=== PATIENT | male | born 1960 | race Caucasian/White ===

== ENCOUNTER 2020-12-28 15:56 | Inpatient (IN) ==
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
[2020-12-28 17:17] LABS: BASOPHILS # (AUTO) 0.1 X10^3/uL (0.0-0.1); BASOPHILS % (AUTO) 1.1 % (0.2-1.0); EOSINOPHILS % (AUTO) 0.3 % (0.9-2.9); HEMATOCRIT 27.4 % (42.0-54.0); LYMPHOCYTES # (AUTO) 0.9 X10^3/uL (1.3-2.9); LYMPHOCYTES % (AUTO) 10.3 % (21.0-51.0); MEAN CORPUSCULAR HEMOGLOBIN 28.9 pg (27.0-34.0); MEAN CORPUSCULAR HGB CONC 32.6 g/dL (33.0-35.0); MEAN CORPUSCULAR VOLUME 88.5 fL (80.0-100.0); MEAN PLATELET VOLUME 9.2 fL (7.4-11.0); MONOCYTES # (AUTO) 1.4 x10^3/uL (0.3-0.8); MONOCYTES % (AUTO) 15.2 % (0.0-13.0); NEUTROPHILS # (AUTO) 6.5 x10^3/uL (2.2-4.8); NEUTROPHILS % (AUTO) 73.1 % (42.0-75.0); PLATELET COUNT 321 X10^3/uL (150.0-450.0); RED CELL DISTRIBUTION WIDTH 22.2 % (11.6-16.5); WHITE BLOOD COUNT 8.9 X10^3/uL (3.6-10.0)
[2020-12-28 17:31] LABS: ANISOCYTOSIS 2+; PLATELET MORPHOLOGY COMMENT NORMAL (NORMAL)
[2020-12-28 17:32] LABS: ALANINE AMINOTRANSFERASE 13 Units/L (12-78); ALBUMIN 2.8 g/dL (3.4-5.0); ALKALINE PHOSPHATASE 376 Units/L (46-116); ASPARTATE AMINO TRANSFERASE 41 Units/L (15-37); BLOOD UREA NITROGEN 51 mg/dL (7-18); CHLORIDE 101 mmol/L (98-107); CREATININE 3.39 mg/dL (0.70-1.30); SODIUM 136 mmol/L (136-145); TOTAL PROTEIN 7.5 g/dL (6.4-8.2); eGFR NON BLACK RACES 20 (>60)
[2020-12-28] MEDS ORDERED: NS 1000 ML 1,000 ML IV ONE (17:36)
--- NOTE | 2020-12-28 17:48 | CT ---
EXAM: CT ABDOMEN AND PELVIS WITHOUT INTRAVENOUS CONTRASTHISTORY: Abdominal pain. Nausea. Rectal bleeding.TECHNIQUE: Spiral axial CT images are obtained through the abdomen and pelvis without the administration of intravenous contrast. Additional coronal and sagittal reformatted images are reconstructed.DOSIMETRY: Total DLP 449.9 mGycm; CTDI 9.6 mGyCOMPARISON: None available.FINDINGS:GASTROINTESTINAL TRACT: Collapsed stomach with up to 3.4 cm thickening of the gastric wall; DDx includes sequela of collapsed state, but cannot rule out gastritis or infiltrative neoplastic disease (e.g. lymphoma and scirrhous adenocarcinoma/lienitis plastica). Clinical correlation is advised. There is diffuse circumfrential thickening of the large bowel loops consistent with pancolitis; DDX includes ulcerative colitis and pseudomembranous colitis. Clinical correlation is advised. No evidence for bowel herniation, bowel obstruction, or diverticulitis. A normal-appearing appendix is seen.GENITOURINARY SYSTEM: The kidneys are unremarkable. There is no ureteral calculus or stigmata of obstructive uropathy. The urinary bladder, seminal vesicles, and prostate gland appear grossly unremarkable for a non-dedicated exam.CT ABDOMEN: There is cholelithiasis (with an approximately 3.5 mm calcified dependent intraluminal gallstone) with gallbladder dilatation and questionable gallbladder wall thickening; findings in keeping with sequela of chronic cholecystitis, but cannot rule out acute cholecystitis in the appropriate clinical setting. Consider follow-up evaluation with HIDA scan to rule out cystic duct obstruction and acute cholecystitis as clinically warranted. The liver, spleen, pancreas, adrenal glands and inferior vena cava are within normal limits for a noncontrast CT scan. There is no intra-abdominal or retroperitoneal lymphadenopathy, free fluid, or free air seen. No abdominal herniation is noted.CT PELVIS: L3-S1: Multilevel DDD noted, progressively worse distally. The visualized bony structures are otherwise within normal limits. No pelvic sidewall or inguinal lymphadenopathy is seen. No inguinal herniation is noted. No free fluid or free air is seen.LUNG BASES: The lung bases are clear.IMPRESSION:1. Collapsed stomach with up to 3.4 cm thickening of the gastric wall; DDx includes sequela of collapsed state, but cannot rule out gastritis or infiltrative neoplastic disease (e.g. lymphoma and scirrhous adenocarcinoma/lienitis plastica). Clinical correlation is advised.2. Diffuse circumfrential thickening of the large bowel loops consistent with pancolitis; DDX includes ulcerative colitis and pseudomembranous colitis.3. Cholelithiasis (with an approximately 3.5 mm calcified dependent intraluminal gallstone) with gallbladder dilatation and questionable gallbladder wall thickening; findings in keeping with sequela of chronic cholecystitis, but cannot rule out acute cholecystitis in the appropriate clinical setting. Consider follow-up evaluation with HIDA scan to rule out cystic duct obstruction and acute cholecystitis as clinically warranted.4. No evidence for renal stone disease or obstructive uropathy.5. No free fluid, free air, mass lesions, or lymphadenopathy seen.6. L3-S1: Multilevel DDD noted, progressively worse distally.Electronically signed by: Guillermo Nevarez (December 28, 2020 17:46:19)
[2020-12-28 17:56] LABS: ABG BASE EXCESS -9.6 mmol/L (-2.0-2.0)
[2020-12-28 17:57] LABS: ABG ALLEN TEST POS; ABG HCO3 14.4 mmol/L (22-26)
[2020-12-28] MEDS ORDERED: ZOFRAN INJ 4 MG VIAL IVP ONE (18:03)
[2020-12-28 18:13] LABS: LACTIC ACID 0.5 mmol/L (0.4-2.0)
[2020-12-28] MEDS ORDERED: ZOFRAN INJ 4 MG VIAL ONE (18:21)
[2020-12-28] MEDS ORDERED: NS 1000 ML 1,000 ML ONE ×2 (18:21→20:03)
[2020-12-28] MEDS ORDERED: ZOFRAN INJ 4 MG VIAL IVP PRN (19:05)
[2020-12-28 19:14] LABS: BILIRUBIN,URINE 1+ (NEGATIVE); BLOOD/HEMOGLOBIN,URINE 2+ (NEGATIVE); GLUCOSE, URINE NEGATIVE (NEGATIVE); KETONES,URINE 1+ (NEGATIVE); LEUKOCYTE ESTERASE ,URINE NEGATIVE (NEGATIVE); NITRITES,URINE NEGATIVE (NEGATIVE); PROTEIN,URINE 1+ (NEGATIVE); UROBILINOGEN,URINE 1+ (NORMAL)
[2020-12-28 19:16] LABS: APPEARANCE,URINE CLEAR (CLEAR); COLOR,URINE YELLOW (YELLOW)
[2020-12-28 19:23] LABS: BACTERIA,URINE 1+ /HPF (NEGATIVE); HYALINE CASTS, URINE FEW /LPF (NEGATIVE); SQUAMOUS EPITHELIAL CELL,UR FEW /HPF (NEGATIVE)
[2020-12-28] MEDS ORDERED: ZOSYN VIAL 3.375 GRAMS IV ONE (19:57)
[2020-12-28] MEDS ORDERED: NS 100 ML IV + SPIKE MINIBAG* 100 ML IV ONE (19:57)
[2020-12-28] MEDS: ZOSYN VIAL 3.375 GRAMS 3.375 G in NS 100 ML IV + SPIKE MINIBAG* 100 ML IV SCH (20:06)
[2020-12-28] MEDS: NS 1000 ML 1,000 ML IV SCH (20:07)
--- NOTE | 2020-12-28 20:07 | RAD ---
HISTORYNeck painSTUDYCERVICAL SPINE, COMPLETECOMPARISONNoneFINDINGSLateral view is suboptimal. Cervical spine is only adequately visualized through C4. Visualized cervical spine alignment is preserved. There are at least moderate multilevel degenerative changes with moderate multilevel osseous foraminal narrowing on oblique views. Odontoid view is intact. No evidence of fracture is identified.IMPRESSIONNo acute process. Moderate multilevel cervical spondylosis.Electronically signed by: Raffy Ch (December 28, 2020 20:04:44)
[2020-12-28] MEDS ORDERED: LEVOPHED INJ 8 MG in D5W 250 ML IV 242 ML IV PRN (22:35)
[2020-12-28] MEDS ORDERED: D5W 250 ML IV 250 ML IV ONE (22:40)
[2020-12-28] MEDS ORDERED: LEVOPHED INJ ONE (22:40)
[2020-12-29] MEDS: ZOSYN VIAL 3.375 GRAMS 3.375 G in NS 100 ML IV + SPIKE MINIBAG* 100 ML IV SCH ×3 (05:12→20:13)
[2020-12-29] MEDS: NS 1000 ML 1,000 ML IV SCH ×3 (05:12→21:40)
[2020-12-29 06:21] LABS: BASOPHILS # (AUTO) 0.1 X10^3/uL (0.0-0.1); BASOPHILS % (AUTO) 0.9 % (0.2-1.0); EOSINOPHILS # (AUTO) 0.3 x10^3/uL (0.0-0.2); EOSINOPHILS % (AUTO) 4.4 % (0.9-2.9); HEMATOCRIT 26.5 % (42.0-54.0); HEMOGLOBIN 8.8 g/dL (13.5-18.0); LYMPHOCYTES # (AUTO) 0.8 X10^3/uL (1.3-2.9); LYMPHOCYTES % (AUTO) 10.2 % (21.0-51.0); MEAN CORPUSCULAR HEMOGLOBIN 29.6 pg (27.0-34.0); MEAN CORPUSCULAR HGB CONC 33.4 g/dL (33.0-35.0); MEAN CORPUSCULAR VOLUME 88.6 fL (80.0-100.0); MEAN PLATELET VOLUME 9.4 fL (7.4-11.0); MONOCYTES # (AUTO) 0.8 x10^3/uL (0.3-0.8); MONOCYTES % (AUTO) 10.4 % (0.0-13.0); NEUTROPHILS # (AUTO) 5.6 x10^3/uL (2.2-4.8); NEUTROPHILS % (AUTO) 74.1 % (42.0-75.0); PLATELET COUNT 309 X10^3/uL (150.0-450.0); RED BLOOD COUNT 2.99 X10^6/uL (4.7-6.0); RED CELL DISTRIBUTION WIDTH 22.4 % (11.6-16.5); WHITE BLOOD COUNT 7.5 X10^3/uL (3.6-10.0)
[2020-12-29 06:34] LABS: ALANINE AMINOTRANSFERASE 11 Units/L (12-78); ALBUMIN 2.5 g/dL (3.4-5.0); ALKALINE PHOSPHATASE 352 Units/L (46-116); ASPARTATE AMINO TRANSFERASE 40 Units/L (15-37); BLOOD UREA NITROGEN 47 mg/dL (7-18); CALCIUM 7.9 mg/dL (8.5-10.1); CARBON DIOXIDE 15.5 mmol/L (21-32); CHLORIDE 109 mmol/L (98-107); COR CA(FOR HYPOALB) 9.1 mg/dL (8.5-10.1); CREATININE 2.81 mg/dL (0.70-1.30); SODIUM 144 mmol/L (136-145); TOTAL PROTEIN 6.9 g/dL (6.4-8.2); eGFR NON BLACK RACES 24 (>60)
[2020-12-29 06:56] LABS: ANISOCYTOSIS 2+; PLATELET MORPHOLOGY COMMENT NORMAL (NORMAL)
[2020-12-29] MEDS ORDERED: ZESTRIL TAB 40 MG PO SCH (10:00)
[2020-12-29] MEDS: MORPHINE SULFATE INJ 2 MG INJ IVP PRN ×3 (10:04→22:36)
[2020-12-29 10:38] VITALS: BMI 21.2
[2020-12-29] MEDS ORDERED: CITROMA PO ONE ×2 (12:42→20:00)
[2020-12-29] MEDS ORDERED: DULCOLAX TAB EC 5 MG PO ONE (12:49)
[2020-12-29] MEDS: ULTRAM PO PRN ×2 (13:04→20:58)
[2020-12-29] MEDS ORDERED: NS 1000 ML 1,000 ML IV ONE (15:57)
--- NOTE | 2020-12-29 17:32 | DR.CONSULT ---
CONSULT Consultation for Day of: Date: 12/29/20 Chief Complaint Chief Complaint: Complaints of abdominal pain and multiple episodes of diarrhea over the last several weeks. Allergies Allergies Allergy/AdvReac Type Severity Reaction Status Date / Time No Known Drug Allergies Allergy Unverified 12/28/20 19:08 History of Present Illness History of Present Illness: The 60-year-old male with history of tobacco abuse, coronary artery disease status post stenting of one vessel who has had several month history of abdominal pain and diarrhea. Patient recently admitted to [facility] where he had same complaints and underwent upper endoscopy. There were no reported abnormalities from that evaluation. Pathology is still pending.Patient was in a [facility] hospital room with the same complaints. He said remarkably dehydrated with a creatinine of greater than three with elevated BUN as well. Past Medical History Past Medical History: Anemia (Has received multiple transfusions of the last of months for anemia.), Coronary Artery Disease (Stenting of one vessel) and Hypertension Family History Family Medical History: Diabetes Mellitus Social History Does patient currently use any type of tobacco product: Yes Have you used tobacco products in the last 12 months: Yes Type of Tobacco Use: Cigarettes How many years tobacco product used: 40 Packs per day or dips/chews per day: 1.5 packs per day Does any household member use tobacco: No Alcohol Use: DAILY Drug Use: None Medications Home Medications: No Known Drug Allergies Allergy (Unverified 12/28/20 19:08) CONTINUE taking the following medications aspirin [Aspir-81] 81 mg PO DAILY 12/28/20 [History] lisinopril 40 mg PO DAILY 12/28/20 [History] omeprazole 40 mg PO DAILY 12/28/20 [History] tramadol 50 mg PO QID 12/28/20 [History] Review of Systems Constitutional: See HPI Physical Exam Vital Signs: Temperature 97.8 F Pulse Rate [Left Brachial] 90 Pulse Rate 82 Respiratory Rate 15 Blood Pressure [Left Arm] 86/51 Blood Pressure 126/70 O2 Sat by Pulse Oximetry 100 Oriented: Normal, Time, Person and Place Eyes: Normal Ear: Normal Nose: Normal Throat: Normal Respiratory: Clear Throughout Cardiovascular: Normal : Normal Auscultation: Bowel Sounds: Normal Palpation: Normal (No significant tenderness noted on my exam.) Skin: Normal Musculoskeletal: Normal Mood Description: Calm (Patient is a very poor historian) Affect: Anxious Speech Pattern: Clear Plan Plan: Patient will continue hydration. Carefully undergo bowel prep with clear liquids and magnesium citrate and dulcolax tabs. patient will undergo routine laboratory values in the morning. NPO after midnight.I discussed the risk and benefits of endoscopy to include bleeding and perforation. He agrees to proceed.
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
[2020-12-30] MEDS: MORPHINE SULFATE INJ 2 MG INJ IVP PRN ×4 (04:35→23:54)
[2020-12-30] MEDS: NS 1000 ML 1,000 ML IV SCH ×4 (04:49→20:48)
[2020-12-30 05:47] LABS: BASOPHILS # (AUTO) 0.1 X10^3/uL (0.0-0.1); BASOPHILS % (AUTO) 1.2 % (0.2-1.0); EOSINOPHILS # (AUTO) 0.4 x10^3/uL (0.0-0.2); EOSINOPHILS % (AUTO) 7.5 % (0.9-2.9); HEMATOCRIT 26.3 % (42.0-54.0); HEMOGLOBIN 8.6 g/dL (13.5-18.0); LYMPHOCYTES # (AUTO) 0.6 X10^3/uL (1.3-2.9); LYMPHOCYTES % (AUTO) 11.2 % (21.0-51.0); MEAN CORPUSCULAR HGB CONC 32.5 g/dL (33.0-35.0); MEAN PLATELET VOLUME 9.1 fL (7.4-11.0); MONOCYTES # (AUTO) 0.6 x10^3/uL (0.3-0.8); MONOCYTES % (AUTO) 12.7 % (0.0-13.0); NEUTROPHILS # (AUTO) 3.3 x10^3/uL (2.2-4.8); NEUTROPHILS % (AUTO) 67.4 % (42.0-75.0); PLATELET COUNT 276 X10^3/uL (150.0-450.0); RED BLOOD COUNT 2.95 X10^6/uL (4.7-6.0)
[2020-12-30 05:59] LABS: ALANINE AMINOTRANSFERASE 14 Units/L (12-78); ALBUMIN 2.4 g/dL (3.4-5.0); ALKALINE PHOSPHATASE 386 Units/L (46-116); ASPARTATE AMINO TRANSFERASE 44 Units/L (15-37); BLOOD UREA NITROGEN 28 mg/dL (7-18); CALCIUM 8.4 mg/dL (8.5-10.1); CARBON DIOXIDE 17.3 mmol/L (21-32); CHLORIDE 112 mmol/L (98-107); COR CA(FOR HYPOALB) 9.7 mg/dL (8.5-10.1); CREATININE 1.59 mg/dL (0.70-1.30); SODIUM 144 mmol/L (136-145); TOTAL PROTEIN 6.7 g/dL (6.4-8.2); eGFR NON BLACK RACES 47 (>60)
[2020-12-30] MEDS ORDERED: K-RIDER 10 MEQ/NS 100 ML 10 MEQ/100 ML BAG IV ONE ×2 (06:22→11:07)
[2020-12-30] MEDS: K-RIDER 10 MEQ/NS 100 ML 10 MEQ/100 ML BAG IV PRN ×8 (06:28→23:55)
[2020-12-30] MEDS ORDERED: BACTROBAN TOPICAL OINT ONE (06:44)
[2020-12-30] MEDS ORDERED: POLYMYXIN B SULFATE ONE (06:44)
[2020-12-30] MEDS ORDERED: XYLOCAINE 1 % (PLAIN) ONE (06:44)
[2020-12-30 06:58] LABS: ANISOCYTOSIS 1+; PLATELET MORPHOLOGY COMMENT NORMAL (NORMAL)
[2020-12-30] MEDS ORDERED: DIPRIVAN VIAL 20 ML ONE ×2 (09:54→10:17)
--- NOTE | 2020-12-30 10:34 | OR.IMMED ---
IMMEDIATE POST-OP NOTE Immediate Post-Op Note Pre-Op Diagnosis: GI EDING, THICKENED STOMACH on CTOLITIS ON CT Post-Op Diagnosis: Thickened proximal stomach, normal colon Procedure: EGD with multiple biopsies of the proximal stomach thickening, Colon appears normal to cecum Description of Procedure: as above Surgeon/Solar System Installer: Levon Findings: as above Specimens Removed: Multiple biopsies of thickened antrum Estimated Blood Loss: 0 Drains: NONE Complications: none Progress Notes: return to ICU Condition: Stable Final Diagnosis: Await pathology
--- NOTE | 2020-12-30 10:37 | PCM.PROG ---
Progress Note - Progress Note for Day of Date of Exam: 12/30/20 - Subjective Subjective: IS BEING TREATED FOR GASTRIC WALL THICKENING, PANCOLITIS, DEHYDRATION, ANEMIA, AND RENAL FAILURE. TODAY, HE IS ALERT AND ORIENTED, LYING IN BED ON MORNING ROUNDS. HE CONTINUES WITH COMPLAINTS OF WEAKNESS AND DARK STOOLS TODAY. ON EXAMINATION, HEART IS REGULAR IN RATE AND RHYTHM. BILATERAL LUNGS ARE NOTED WITH DIMINISHED LUNG SOUNDS THROUGHOUT. ABDOMEN IS ROUND, SOFT, AND NOTED TO HAVE DIFFUSE TENDERNESS. HIS VITALS THIS MORNING ARE: 97.8-23-61-100-145/82. LABS WERE OBTAINED. ABNORMAL LAB VALUES INCLUDE THE FOLLOWING: RBC 2.95, HGB 8.6, HCT 26.3, POTASSIUM 2.8, CHLORIDE 112, CARBON DIOXIDE 17.3, BUN 28, CREATININE 1.59, CALCIUM 8.4, AST 44, ALK PHOS 386, ALBUMIN 2.4. CRP YESTERDAY WAS 102.10, ESR 91. , GENERAL SURGEON CONSULTED WITH PATIENT AND PLANS FOR EGD AND COLONOSCOPY TODAY. WE ARE IN AGREEMENT WITH PLANS. HE IS CURRENTLY RECEIVING NORMAL SALINE AT 125 ML/HR, LEVOPHED DRIP, ZOSYN 3.375G IV BID, MORPHINE 2MG IV Q6H PRN, ZOFRAN 4MG IV Q8H PRN, AND TRAMADOL 50MG PO QID PRN. WE WILL DISCONTINUE THE LEVOPHED DRIP DUE TO STABLE BLOOD PRESSURE. WE WILL ALSO START MAGNESIUM PER PROTOCOL. OTHERWISE, WE PLAN TO FOLLOW UP WITH AM LABS AND CONTINUE TO MONITOR. - Past Medical Family Social History Past Med/Fam/Surg Hx: No changes since H&P Allergies: Allergies No Known Drug Allergies Allergy (Unverified 12/28/20 19:08) - Review of Systems ROS: No change since H&P - Vital Signs and I&O's Vital Signs: Temperature 97.8 F Pulse Rate [Left Brachial] 90 Pulse Rate 75 Respiratory Rate 12 Blood Pressure [Left Arm] 86/51 Blood Pressure 149/83 O2 Sat by Pulse Oximetry 99 Intake and Output: Intake & Output 12/27/20 12/28/20 12/29/20 12/30/20 11:59 11:59 11:59 11:59 Intake Total 662 / 662 5155 / 5155 Output Total 400 / 400 1200 / 1200 Balance 262 / 262 3955 / 3955 - Physical Exam Oriented: Normal, Time, Person, Place Eyes: Normal Ear: Normal Nose: Normal Throat: Normal Respiratory: Diminished Cardiovascular: Normal : Normal Auscultation: Bowel Sounds: Normal Palpation: Normal Tenderness: Diffuse, Mild Skin: Normal Musculoskeletal: Instability Psychiatric: Normal Mood Description: Calm Affect: Normal Speech Pattern: Clear, Appropriate - Laboratory and Diagnostics Result Diagrams: 12/30/20 05:18 12/30/20 05:18 Labs: Laboratory WBC 5.0 X10^3/uL (3.6-10.0) 12/30/20 05:18 RBC 2.95 X10^6/uL (4.7-6.0) L 12/30/20 05:18 Hgb 8.6 g/dL (13.5-18.0) L 12/30/20 05:18 Hct 26.3 % (42.0-54.0) L 12/30/20 05:18 MCV 89.0 fL (80.0-100.0) 12/30/20 05:18 MCH 29.0 pg (27.0-34.0) 12/30/20 05:18 MCHC 32.5 g/dL (33.0-35.0) L 12/30/20 05:18 RDW 22.0 % (11.6-16.5) H 12/30/20 05:18 Plt Count 276 X10^3/uL (150.0-450.0) 12/30/20 05:18 Plt Count Comment Adequate (ADEQUATE) 12/30/20 05:18 MPV 9.1 fL (7.4-11.0) 12/30/20 05:18 Neut % (Auto) 67.4 % (42.0-75.0) 12/30/20 05:18 Lymph % (Auto) 11.2 % (21.0-51.0) L 12/30/20 05:18 [place] % (Auto) 12.7 % (0.0-13.0) 12/30/20 05:18 Eos % (Auto) 7.5 % (0.9-2.9) H 12/30/20 05:18 Baso % (Auto) 1.2 % (0.2-1.0) H 12/30/20 05:18 Neut # (Auto) 3.3 x10^3/uL (2.2-4.8) 12/30/20 05:18 Lymph # (Auto) 0.6 X10^3/uL (1.3-2.9) L 12/30/20 05:18 [place] # (Auto) 0.6 x10^3/uL (0.3-0.8) 12/30/20 05:18 Eos # (Auto) 0.4 x10^3/uL (0.0-0.2) H 12/30/20 05:18 Baso # (Auto) 0.1 X10^3/uL (0.0-0.1) 12/30/20 05:18 Absolute Nucleated RBC 0.1 /100WBC 12/30/20 05:18 Plt Morphology Comment Normal (NORMAL) 12/30/20 05:18 RBC Morphology Abnormal (NORMAL) 12/30/20 05:18 Anisocytosis 1+ A 12/30/20 05:18 ESR 91 MM/HOUR (0-15) H 12/29/20 05:10 Sample Site Rrad 12/28/20 17:50 ABG pH 7.350 (7.35-7.45) 12/28/20 17:50 ABG pCO2 26.0 mmHg (35.0-45.0) L 12/28/20 17:50 ABG pO2 116.0 mmHg (80.0-100.0) H 12/28/20 17:50 ABG HCO3 14.4 mmol/L (22-26) L* 12/28/20 17:50 ABG O2 Saturation 98.0 % (90-100) 12/28/20 17:50 ABG Base Excess -9.6 mmol/L (-2.0-2.0) L 12/28/20 17:50 Yusef Test Pos 12/28/20 17:50 A-a Gradient 1.0 mmHg 12/28/20 17:50 FiO2 21.0 12/28/20 17:50 Blood Gas Comments Pt olga well elj cdn 12/28/20 17:50 Sodium 144 mmol/L (136-145) 12/30/20 05:18 Corrected Sodium TNP 12/30/20 05:18 Potassium 2.8 mmol/L (3.5-5.1) L* 12/30/20 05:18 Chloride 112 mmol/L (98-107) H 12/30/20 05:18 Carbon Dioxide 17.3 mmol/L (21-32) L 12/30/20 05:18 BUN 28 mg/dL (7-18) H 12/30/20 05:18 Creatinine 1.59 mg/dL (0.70-1.30) H 12/30/20 05:18 Est GFR (MDRD) Af Amer 57 (>60) L 12/30/20 05:18 Est GFR (MDRD) Non-Af 47 (>60) L 12/30/20 05:18 Glucose 90 mg/dL (65-99) 12/30/20 05:18 Lactic Acid 0.5 mmol/L (0.4-2.0) 12/28/20 17:04 Calcium 8.4 mg/dL (8.5-10.1) L 12/30/20 05:18 Corrected Calcium 9.7 mg/dL (8.5-10.1) 12/30/20 05:18 Magnesium 1.5 mg/dL (1.7-2.9) L 12/30/20 05:18 Iron 16 ug/dL (50-175) L 12/29/20 05:10 Transferrin 231 mg/dL (202-364) 12/29/20 05:10 Ferritin 83 ng/mL (26-388) 12/29/20 05:10 Total Bilirubin 0.40 mg/dL (0.2-1.0) 12/30/20 05:18 AST 44 Units/L (15-37) H 12/30/20 05:18 ALT 14 Units/L (12-78) 12/30/20 05:18 Alkaline Phosphatase 386 Units/L (46-116) H 12/30/20 05:18 Creatine Kinase 228 Units/L (39-308) 12/28/20 17:04 C-Reactive Protein 102.10 mg/L (0-3.0) H 12/29/20 05:10 Total Protein 6.7 g/dL (6.4-8.2) 12/30/20 05:18 Albumin 2.4 g/dL (3.4-5.0) L 12/30/20 05:18 Globulin 4.3 g/dL (2.5-4.5) 12/30/20 05:18 Albumin/Globulin Ratio 0.6 Ratio (1.1-2.1) L 12/30/20 05:18 Vitamin B12 1818 pg/mL (193-986) H 12/29/20 05:10 Folate 5.1 ng/mL (>8.6) L 12/29/20 05:10 Specimen Type Clean catch urine 12/28/20 19:03 Urine Color Yellow (YELLOW) 12/28/20 19:03 Urine Appearance Clear (CLEAR) 12/28/20 19:03 Urine pH 5.0 (5.0 - 8.0) 12/28/20 19:03 Ur Specific [place] 1.015 (1.000-1.030) 12/28/20 19:03 Urine Protein 1+ (NEGATIVE) 12/28/20 19:03 Urine Glucose (UA) Negative (NEGATIVE) 12/28/20 19:03 Urine Ketones 1+ (NEGATIVE) 12/28/20 19:03 Urine Occult Blood 2+ (NEGATIVE) 12/28/20 19:03 Urine Nitrite Negative (NEGATIVE) 12/28/20 19:03 Urine Bilirubin 1+ (NEGATIVE) 12/28/20 19:03 Urine Urobilinogen 1+ (NORMAL) 12/28/20 19:03 Ur Leukocyte Esterase Negative (NEGATIVE) 12/28/20 19:03 Urine RBC 3-5 /HPF (0-3) A 12/28/20 19:03 Urine WBC 0-2 /HPF (0-5) 12/28/20 19:03 Ur Squamous Epith Cells Few /HPF (NEGATIVE) 12/28/20 19:03 Urine Bacteria 1+ /HPF (NEGATIVE) 12/28/20 19:03 Hyaline Casts Few /LPF (NEGATIVE) 12/28/20 19:03 Ur Culture Indicated? No/not indicated 12/28/20 19:03 SARS CoV-2 RNA Rapid [place]IS[place] Negative (NEGATIVE) 12/28/20 19:14 - Plan (1) Gastric wall thickening Status: Acute Plan: NORMAL SALINE AT 125 ML/HR, ZOSYN 3.375G IV BID, MAGNESIUM PER PROTOCOL, MORPHINE 2MG IV Q6H PRN, ZOFRAN 4MG IV Q8H PRN, AND TRAMADOL 50MG PO QID PRN. WE WILL CONSULT WITH GENERAL SURGERY. (2) Pancolitis Status: Acute (3) Metabolic acidosis Status: Acute (4) Acute dehydration Status: Acute (5) Anemia Status: Acute Qualifiers: Anemia type: unspecified type Qualified Code(s): D64.9 - Anemia, unspecified (6) CRF (chronic renal failure) Status: Acute Qualifiers: Chronic kidney disease stage: stage 5 Qualified Code(s): N18.5 - Chronic kidney disease, stage 5
[2020-12-30] MEDS: ZOSYN VIAL 3.375 GRAMS 3.375 G in NS 100 ML IV + SPIKE MINIBAG* 100 ML IV SCH ×2 (10:45→20:00)
[2020-12-30] MEDS: MAGNESIUM SULFATE 1 GRAM/100 mL PREMIX 1 GM/100 ML BAG IV PRN ×2 (15:00→16:57)
[2020-12-31] MEDS: K-RIDER 10 MEQ/NS 100 ML 10 MEQ/100 ML BAG IV PRN ×4 (00:55→03:58)
[2020-12-31] MEDS: MORPHINE SULFATE INJ 2 MG INJ IVP PRN (06:10)
[2020-12-31] MEDS: NS 1000 ML 1,000 ML IV SCH ×3 (06:11→19:45)
[2020-12-31 07:27] LABS: BASOPHILS % (AUTO) 0.8 % (0.2-1.0); EOSINOPHILS # (AUTO) 0.3 x10^3/uL (0.0-0.2); EOSINOPHILS % (AUTO) 4.5 % (0.9-2.9); HEMATOCRIT 25.7 % (42.0-54.0); HEMOGLOBIN 8.3 g/dL (13.5-18.0); LYMPHOCYTES # (AUTO) 0.8 X10^3/uL (1.3-2.9); LYMPHOCYTES % (AUTO) 14.5 % (21.0-51.0); MEAN CORPUSCULAR HEMOGLOBIN 29.4 pg (27.0-34.0); MEAN CORPUSCULAR HGB CONC 32.3 g/dL (33.0-35.0); MEAN CORPUSCULAR VOLUME 91.2 fL (80.0-100.0); MEAN PLATELET VOLUME 8.3 fL (7.4-11.0); MONOCYTES # (AUTO) 0.6 x10^3/uL (0.3-0.8); MONOCYTES % (AUTO) 11.1 % (0.0-13.0); NEUTROPHILS # (AUTO) 3.8 x10^3/uL (2.2-4.8); NEUTROPHILS % (AUTO) 69.1 % (42.0-75.0); PLATELET COUNT 239 X10^3/uL (150.0-450.0); RED BLOOD COUNT 2.82 X10^6/uL (4.7-6.0); WHITE BLOOD COUNT 5.5 X10^3/uL (3.6-10.0)
[2020-12-31 07:39] LABS: ALANINE AMINOTRANSFERASE 13 Units/L (12-78); ALBUMIN 2.2 g/dL (3.4-5.0); ALKALINE PHOSPHATASE 376 Units/L (46-116); ASPARTATE AMINO TRANSFERASE 42 Units/L (15-37); BLOOD UREA NITROGEN 18 mg/dL (7-18); CHLORIDE 112 mmol/L (98-107); COR CA(FOR HYPOALB) 9.4 mg/dL (8.5-10.1); CREATININE 1.15 mg/dL (0.70-1.30); MAGNESIUM 1.5 mg/dL (1.7-2.9); SODIUM 140 mmol/L (136-145); TOTAL PROTEIN 6.4 g/dL (6.4-8.2); eGFR NON BLACK RACES > 60 (>60)
[2020-12-31 07:42] LABS: ANISOCYTOSIS 1+; PLATELET MORPHOLOGY COMMENT NORMAL (NORMAL)
[2020-12-31] MEDS: ZOSYN VIAL 3.375 GRAMS 3.375 G in NS 100 ML IV + SPIKE MINIBAG* 100 ML IV SCH ×2 (08:01→22:01)
[2020-12-31] MEDS: MAGNESIUM SULFATE 1 GRAM/100 mL PREMIX 1 GM/100 ML BAG IV PRN ×2 (08:13→09:36)
[2020-12-31] MEDS ORDERED: DEMEROL INJ IVP PRN (09:33)
--- NOTE | 2020-12-31 09:33 | DR.OPNOTE ---
OP NOTE Pre-Op Diagnosis: Date ofprocedure 11/30/20,GI bleeding,? stomach mass, ?brandt- colitis , by CT Post-Op Diagnosis: Normal colon, proximal stomach mass effect no active bleeding Procedure: This patient was taken to the operating suite and placed in the left lateral position. Bite block was placed in the mouth. Time out for the procedure obtained. Flexible scope introduced into her mouth and into the esophagus. The esophagus and gastroesophageal Junction were normal. It was difficult to insufflate the proximal stomach secondary to mass effect. Antrum of the stomach was normal as was the duodenum. Retroflection of the scope carried out showing significant mass effect, possible lymphoid tissue of the proximal stomach. Multiple biopsies and pictures were obtained. The scope was then withdrawn. The patient was turned around and the flexible colonoscope introduced into the anus and taken all the way to the cecum without difficulty. 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 The entire colon was normal in regards to the mucosa. No biopsies were obtained. Scope withdrawn and the patient tolerated this well and was returned to the ICU. Anesthesia Comment: MAC Findings: Proximal stomach mass, normal colon Specimen/Pathology: Multiple biopsies of stomach mass effect Total Amount of Fluid Infused:: se anesthesia note Urine output: see note EBL: 0 Complications:: none Needle/Sponge Count:: not required Disposition/Condition: Pt. tolerated procedure without difficulty. Quality management policies explosiveness with
[2020-12-31] MEDS ORDERED: LEVSIN/MAALOX/LIDOC VISC PO PRN (09:34)
--- NOTE | 2020-12-31 09:57 | PCM.PROG ---
Progress Note - Progress Note for Day of Date of Exam: 12/31/20 - Subjective Subjective: IS BEING TREATED FOR GASTRIC WALL THICKENING, PANCOLITIS, DEHYDRATION, ANEMIA, AND RENAL FAILURE. TODAY, HE IS ALERT AND ORIENTED, LYING IN BED ON MORNING ROUNDS. HE CONTINUES WITH COMPLAINTS OF WEAKNESS, SHORTNESS OF BREATH AT TIMES, AND ABDOMINAL TENDERNESS WELL. ON EXAMINATION, HEART IS REGULAR IN RATE AND RHYTHM. BILATERAL LUNGS ARE NOTED WITH DIMINISHED LUNG SOUNDS THROUGHOUT. ABDOMEN IS ROUND, SOFT, AND NOTED TO HAVE DIFFUSE TENDERNESS TO PALPATION. HIS VITALS THIS MORNING ARE: 98.1-74-18-95%-143/84. LABS WERE OBTAINED. ABNORMAL LAB VALUES INCLUDE THE FOLLOWING: RBC 2.82, HGB 8.3, HCT 25.7, CHLORIDE 112, CARBON DIOXIDE 17.0, CALCIUM 8.0, MAGNESIUM 1.5, AST 42, ALK PHOS 376, CRP 34.30, ALBUMIN 2.2. , GENERAL SURGEON, TOOK PATIENT OT THE OR YESTERDAY FOR AN EGD WITH MULTIPLE BIOPSIES OF THE PROXIMAL STOMACH THICKENING. HE IS CURRENTLY RECEIVING NORMAL SALINE AT 125 ML/HR, ZOSYN 3.375G IV BID, MORPHINE 2MG IV Q6H PRN, ZOFRAN 4MG IV Q8H PRN, TRAMADOL 50MG PO QID PRN, AND THE POTASSIUM AND MAGNESIUM PROTOCOLS. TODAY, WE WILL ADD PEPCID 20MG IV BID, PROTONIX 40MG IV BID, GI COCKTAIL 30ML PO TID PRN. WE WILL OBTAIN A CHEST CT WITH CONTRAST AND A HIDA SCAN WITHOUT EJECTION FRACTION IN THE MORNING TO RULE OUT CYSTIC DUCT OBSTRUCTION OR ACUTE CHOLECYSTITIS. OTHERWISE, WE PLAN TO FOLLOW UP WITH AM LABS AND CONTINUE TO MONITOR. TIME SPENT ON CLINICAL ASSESS MENT, REVIEWING LABS AND IMAGING, DECISION MAKING, AND DOCUMENTATION GREATER THAN 45 MINUTES. - Past Medical Family Social History Past Med/Fam/Surg Hx: No changes since H&P Allergies: Allergies No Known Drug Allergies Allergy (Unverified 12/28/20 19:08) - Review of Systems ROS: No change since H&P - Vital Signs and I&O's Vital Signs: Temperature 98.1 F Pulse Rate [Left Brachial] 90 Pulse Rate 67 Respiratory Rate 14 Blood Pressure [Left Arm] 86/51 Blood Pressure 169/83 O2 Sat by Pulse Oximetry 99 Intake and Output: Intake & Output 0512/29/20 12/30/20 12/31/20 11:59 11:59 11:59 11:59 Intake Total 662 / 662 5155 / 5155 2445 / 2445 Output Total 400 / 400 1200 / 1200 220 / 220 Balance 262 / 262 3955 / 3955 2225 / 2225 - Physical Exam Oriented: Normal, Time, Person, Place Eyes: Normal Ear: Normal Nose: Normal Throat: Normal Respiratory: Diminished Cardiovascular: Normal : Normal Auscultation: Bowel Sounds: Normal Palpation: Normal Tenderness: Diffuse, Mild Skin: Normal Musculoskeletal: Instability Psychiatric: Normal Mood Description: Calm Affect: Normal Speech Pattern: Clear, Appropriate - Laboratory and Diagnostics Result Diagrams: 12/31/20 07:17 12/31/20 07:17 Labs: Laboratory WBC 5.5 X10^3/uL (3.6-10.0) 12/31/20 07:17 RBC 2.82 X10^6/uL (4.7-6.0) L 12/31/20 07:17 Hgb 8.3 g/dL (13.5-18.0) L 12/31/20 07:17 Hct 25.7 % (42.0-54.0) L 12/31/20 07:17 MCV 91.2 fL (80.0-100.0) 12/31/20 07:17 MCH 29.4 pg (27.0-34.0) 12/31/20 07:17 MCHC 32.3 g/dL (33.0-35.0) L 12/31/20 07:17 RDW 22.0 % (11.6-16.5) H 12/31/20 07:17 Plt Count 239 X10^3/uL (150.0-450.0) 12/31/20 07:17 Plt Count Comment Adequate (ADEQUATE) 12/31/20 07:17 MPV 8.3 fL (7.4-11.0) 12/31/20 07:17 Neut % (Auto) 69.1 % (42.0-75.0) 12/31/20 07:17 Lymph % (Auto) 14.5 % (21.0-51.0) L 12/31/20 07:17 [place] % (Auto) 11.1 % (0.0-13.0) 12/31/20 07:17 Eos % (Auto) 4.5 % (0.9-2.9) H 12/31/20 07:17 Baso % (Auto) 0.8 % (0.2-1.0) 12/31/20 07:17 Neut # (Auto) 3.8 x10^3/uL (2.2-4.8) 12/31/20 07:17 Lymph # (Auto) 0.8 X10^3/uL (1.3-2.9) L 12/31/20 07:17 [place] # (Auto) 0.6 x10^3/uL (0.3-0.8) 12/31/20 07:17 Eos # (Auto) 0.3 x10^3/uL (0.0-0.2) H 12/31/20 07:17 Baso # (Auto) 0.0 X10^3/uL (0.0-0.1) 12/31/20 07:17 Absolute Nucleated RBC 0.0 /100WBC 12/31/20 07:17 Plt Morphology Comment Normal (NORMAL) 12/31/20 07:17 RBC Morphology Abnormal (NORMAL) 12/31/20 07:17 Anisocytosis 1+ A 12/31/20 07:17 ESR 91 MM/HOUR (0-15) H 12/29/20 05:10 Sample Site Rrad 12/28/20 17:50 ABG pH 7.350 (7.35-7.45) 12/28/20 17:50 ABG pCO2 26.0 mmHg (35.0-45.0) L 12/28/20 17:50 ABG pO2 116.0 mmHg (80.0-100.0) H 12/28/20 17:50 ABG HCO3 14.4 mmol/L (22-26) L* 12/28/20 17:50 ABG O2 Saturation 98.0 % (90-100) 12/28/20 17:50 ABG Base Excess -9.6 mmol/L (-2.0-2.0) L 12/28/20 17:50 Yusef Test Pos 12/28/20 17:50 A-a Gradient 1.0 mmHg 12/28/20 17:50 FiO2 21.0 12/28/20 17:50 Blood Gas Comments Pt olga well elj cdn 12/28/20 17:50 Sodium 140 mmol/L (136-145) 12/31/20 07:17 Corrected Sodium TNP 12/31/20 07:17 Potassium 4.2 mmol/L (3.5-5.1) 12/31/20 07:17 Chloride 112 mmol/L (98-107) H 12/31/20 07:17 Carbon Dioxide 17.0 mmol/L (21-32) L 12/31/20 07:17 BUN 18 mg/dL (7-18) 12/31/20 07:17 Creatinine 1.15 mg/dL (0.70-1.30) 12/31/20 07:17 Est GFR (MDRD) Af Amer > 60 (>60) 12/31/20 07:17 Est GFR (MDRD) Non-Af > 60 (>60) 12/31/20 07:17 Glucose 93 mg/dL (65-99) 12/31/20 07:17 Lactic Acid 0.5 mmol/L (0.4-2.0) 12/28/20 17:04 Calcium 8.0 mg/dL (8.5-10.1) L 12/31/20 07:17 Corrected Calcium 9.4 mg/dL (8.5-10.1) 12/31/20 07:17 Magnesium 1.5 mg/dL (1.7-2.9) L 12/31/20 07:17 Iron 16 ug/dL (50-175) L 12/29/20 05:10 Transferrin 231 mg/dL (202-364) 12/29/20 05:10 Ferritin 83 ng/mL (26-388) 12/29/20 05:10 Total Bilirubin 0.30 mg/dL (0.2-1.0) 12/31/20 07:17 AST 42 Units/L (15-37) H 12/31/20 07:17 ALT 13 Units/L (12-78) 12/31/20 07:17 Alkaline Phosphatase 376 Units/L (46-116) H 12/31/20 07:17 Creatine Kinase 228 Units/L (39-308) 12/28/20 17:04 C-Reactive Protein 34.30 mg/L (0-3.0) H 12/31/20 07:17 Total Protein 6.4 g/dL (6.4-8.2) 12/31/20 07:17 Albumin 2.2 g/dL (3.4-5.0) L 12/31/20 07:17 Globulin 4.2 g/dL (2.5-4.5) 12/31/20 07:17 Albumin/Globulin Ratio 0.5 Ratio (1.1-2.1) L 12/31/20 07:17 Vitamin B12 1818 pg/mL (193-986) H 12/29/20 05:10 Folate 5.1 ng/mL (>8.6) L 12/29/20 05:10 Specimen Type Clean catch urine 12/28/20 19:03 Urine Color Yellow (YELLOW) 12/28/20 19:03 Urine Appearance Clear (CLEAR) 12/28/20 19:03 Urine pH 5.0 (5.0 - 8.0) 12/28/20 19:03 Ur Specific [place] 1.015 (1.000-1.030) 12/28/20 19:03 Urine Protein 1+ (NEGATIVE) 12/28/20 19:03 Urine Glucose (UA) Negative (NEGATIVE) 12/28/20 19:03 Urine Ketones 1+ (NEGATIVE) 12/28/20 19:03 Urine Occult Blood 2+ (NEGATIVE) 12/28/20 19:03 Urine Nitrite Negative (NEGATIVE) 12/28/20 19:03 Urine Bilirubin 1+ (NEGATIVE) 12/28/20 19:03 Urine Urobilinogen 1+ (NORMAL) 12/28/20 19:03 Ur Leukocyte Esterase Negative (NEGATIVE) 12/28/20 19:03 Urine RBC 3-5 /HPF (0-3) A 12/28/20 19:03 Urine WBC 0-2 /HPF (0-5) 12/28/20 19:03 Ur Squamous Epith Cells Few /HPF (NEGATIVE) 12/28/20 19:03 Urine Bacteria 1+ /HPF (NEGATIVE) 12/28/20 19:03 Hyaline Casts Few /LPF (NEGATIVE) 12/28/20 19:03 Ur Culture Indicated? No/not indicated 12/28/20 19:03 SARS CoV-2 RNA Rapid GISSELLE Negative (NEGATIVE) 12/28/20 19:14 Tissue Pathology To follow 12/30/20 10:34 - Plan (1) Gastric wall thickening Status: Acute Plan: NORMAL SALINE AT 125 ML/HR, ZOSYN 3.375G IV BID, MAGNESIUM PER PROTOCOL, DEMEROL 25MG IV Q6H PRN, PEPCID 20MG IV BID, PROTONIX 40MG IV BID, GI COCKTAIL PRN, ZOFRAN 4MG IV Q8H PRN, AND TRAMADOL 50MG PO QID PRN. HIDA IN AM (2) Pancolitis Status: Acute (3) Metabolic acidosis Status: Acute (4) Acute dehydration Status: Acute (5) Anemia Status: Acute Qualifiers: Anemia type: unspecified type Qualified Code(s): D64.9 - Anemia, unspecified (6) CRF (chronic renal failure) Status: Acute Qualifiers: Chronic kidney disease stage: stage 5 Qualified Code(s): N18.5 - Chronic kidney disease, stage 5
[2020-12-31] MEDS: PROTONIX INJ 40 MG VIAL IVP SCH ×2 (10:42→21:11)
[2020-12-31] MEDS: PEPCID 20 MG IV PREMIX* 20 MG/50 ML BAG IV SCH ×2 (10:42→21:11)
[2020-12-31] MEDS: DEMEROL INJ IVP PRN ×3 (12:15→23:11)
--- NOTE | 2020-12-31 14:35 | CT ---
HISTORYSOB, COUGH, EVAL FOR MALIGNANT PROCESS, ABNOMAL EGD hypertension. Coronary artery disease.STUDYCHEST WITH CONCOMPARISONChest x-ray 05/11/2019TECHNIQUEMultiple CT axial images of the chest were obtained without IV contrast. Coronal and sagittal images were reconstructed. Dose reduction techniques included Automated Exposure Control (AEC) and adjustment of mA and kV.FINDINGSThe thyroid has a normal size and configuration. No axillary mass or significant axillary lymphadenopathy is identified.Cardiomegaly is present. Atherosclerotic calcifications are present in the coronary arteries. The pulmonary artery and aorta have a normal caliber. No mediastinal mass or significant lymphadenopathy.The lungs are well inflated with no pneumonia or pleural effusion.Small volume ascites is seen in the upper abdomen. This is new since the prior CT abdomen and pelvis 12/28/2020 the spleen is large measuring 14 cm. Calcified gallstone is present. Fluid around the gallbladder may be part of the ascites which is present.IMPRESSION1. No evidence for malignancy in the chest2. Cardiomegaly with CAD3. New small volume ascites4. CholelithiasisElectronically signed by: Daryn Motta (December 31, 2020 14:32:54)
--- NOTE | 2020-12-31 20:18 | NOTE.SOAP ---
Soap Note Note for Day of Date of Exam: 12/31/20 Subjective Data Subjective Data: Patient admitted with dehydration and evidence of G.I. bleeding. CT scan showed questionable thickening of the gastric antrum and possible brandt- colitis.Colonoscopy showed a normal colon. Multibyte is obtained of the proximal mass. Pathology pending. Patient dehydration markedly improved. Patient note have gallstones but this point has no significant symptoms. HIDA scan ordered. Objective Data Temperature: 98.8 F Pulse Rate: 78 Respiratory Rate: 20 Blood Pressure: 153/79 O2 Sat by Pulse Oximetry: 100 Objective Data: Benign abdomen. Tolerating clear liquids. Assessment Assessment: Continued liquid diet await final pathology. Continue proton pump inhibitor. HIDA scan ordered by his attending physician. Plan Plan: Await results of the pathology. Patient transferred to the floor.
[2021-01-01] MEDS: NS 1000 ML 1,000 ML IV SCH ×4 (04:25→21:22)
[2021-01-01] MEDS: DEMEROL INJ IVP PRN ×4 (05:00→23:08)
[2021-01-01 05:24] LABS: BASOPHILS # (AUTO) 0.1 X10^3/uL (0.0-0.1); BASOPHILS % (AUTO) 2.8 % (0.2-1.0); EOSINOPHILS # (AUTO) 0.2 x10^3/uL (0.0-0.2); EOSINOPHILS % (AUTO) 4.1 % (0.9-2.9); HEMATOCRIT 23.9 % (42.0-54.0); HEMOGLOBIN 7.8 g/dL (13.5-18.0); LYMPHOCYTES % (AUTO) 19.4 % (21.0-51.0); MEAN CORPUSCULAR HEMOGLOBIN 29.5 pg (27.0-34.0); MEAN CORPUSCULAR HGB CONC 32.6 g/dL (33.0-35.0); MEAN CORPUSCULAR VOLUME 90.3 fL (80.0-100.0); MEAN PLATELET VOLUME 8.9 fL (7.4-11.0); MONOCYTES # (AUTO) 0.5 x10^3/uL (0.3-0.8); MONOCYTES % (AUTO) 9.3 % (0.0-13.0); NEUTROPHILS # (AUTO) 3.3 x10^3/uL (2.2-4.8); NEUTROPHILS % (AUTO) 64.4 % (42.0-75.0); PLATELET COUNT 200 X10^3/uL (150.0-450.0); RED BLOOD COUNT 2.65 X10^6/uL (4.7-6.0); RED CELL DISTRIBUTION WIDTH 22.1 % (11.6-16.5); WHITE BLOOD COUNT 5.1 X10^3/uL (3.6-10.0)
[2021-01-01 05:43] LABS: ALANINE AMINOTRANSFERASE 13 Units/L (12-78); ALBUMIN 2.1 g/dL (3.4-5.0); ALKALINE PHOSPHATASE 371 Units/L (46-116); ASPARTATE AMINO TRANSFERASE 42 Units/L (15-37); BLOOD UREA NITROGEN 14 mg/dL (7-18); CALCIUM 8.3 mg/dL (8.5-10.1); CARBON DIOXIDE 17.3 mmol/L (21-32); CHLORIDE 112 mmol/L (98-107); COR CA(FOR HYPOALB) 9.8 mg/dL (8.5-10.1); CREATININE 1.06 mg/dL (0.70-1.30); MAGNESIUM 1.5 mg/dL (1.7-2.9); SODIUM 142 mmol/L (136-145); eGFR NON BLACK RACES > 60 (>60)
[2021-01-01 06:04] LABS: ANISOCYTOSIS 2+; HYPOCHROMASIA SLIGHT; PLATELET MORPHOLOGY COMMENT NORMAL (NORMAL)
[2021-01-01] MEDS: PEPCID 20 MG IV PREMIX* 20 MG/50 ML BAG IV SCH ×2 (09:05→20:30)
[2021-01-01] MEDS: ZOSYN VIAL 3.375 GRAMS 3.375 G in NS 100 ML IV + SPIKE MINIBAG* 100 ML IV SCH ×2 (09:06→20:30)
[2021-01-01] MEDS: MAGNESIUM SULFATE 1 GRAM/100 mL PREMIX 1 GM/100 ML BAG IV PRN ×2 (09:06→11:17)
[2021-01-01] MEDS: PROTONIX INJ 40 MG VIAL IVP SCH ×2 (09:07→20:30)
[2021-01-01] MEDS ORDERED: TYLENOL 325 MG TAB PO PRN (10:00)
[2021-01-01] MEDS ORDERED: BENADRYL INJ 50 MG VIAL IVP PRN (10:00)
[2021-01-01] MEDS ORDERED: NS 500 ML IV 500 ML IV ONE (10:00)
--- NOTE | 2021-01-01 10:00 | PCM.PROG ---
Progress Note - Progress Note for Day of Date of Exam: 01/01/21 - Subjective Subjective: IS BEING TREATED FOR GASTRIC WALL THICKENING, PANCOLITIS, DEHYDRATION, ANEMIA, AND RENAL FAILURE. HE HAD AN ENDOSCOPY WEDNESDAY WHICH REVEALED THICKENING OF THE PROXIMAL STOMACH. MULTIPLE BIPOSIES WERE TAKEN. TODAY, HE IS ALERT AND ORIENTED, LYING IN BED ON MORNING ROUNDS. HE CONTINUES WITH COMPLAINTS OF WEAKNESS, SHORTNESS OF BREATH AT TIMES, AND ABDOMINAL TENDERNESS WELL. ABDOMEN IS SLIGHTLY DISTENDED. ON EXAMINATION, HEART IS REGULAR IN RATE AND RHYTHM. BILATERAL LUNGS ARE NOTED WITH DIMINISHED LUNG SOUNDS THROUGHOUT. ABDOMEN IS ROUND, SOFT, AND NOTED TO HAVE DIFFUSE TENDERNESS TO PALPATION. NORMAL BOWEL SOUNDS ARE NOTED IN ALL QUADRANTS. HIS VITALS THIS MORNING ARE: 97.4-71-18-100%-160/89. LABS WERE OBTAINED. ABNORMAL LAB VALUES INCLUDE THE FOLLOWING: RBC 2.65, HGB 7.8, HCT 23.9, CHLORIDE 112, CARBON DIOXIDE 17.3, CALCIUM 8.3, MAGNESIUM 1.5, AST 42, ALK PHOS 371, CRP 18.60, TOTAL PROTEIN 6.0, ALBUMIN 2.1. A CHEST CT WITH CONTRAST WAS OBTAIEND YESTERDAY AND REVEALED: 1. No evidence for malignancy in the chest 2. Cardiomegaly with CAD 3. New small volume ascites 4. Cholelithiasis. HE IS CURRENTLY RECEIVING NORMAL SALINE AT 125 ML/HR, ZOSYN 3.375G IV BID, MORPHINE 2MG IV Q6H PRN, ZOFRAN 4MG IV Q8H PRN, TRAMADOL 50MG PO QID PRN, AND THE POTASSIUM AND MAGNESIUM PROTOCOLS. TODAY, WE WILL ADD PEPCID 20MG IV BID, PROTONIX 40MG IV BID, GI COCKTAIL 30ML PO TID PRN. WE WILL OBTAIN A MRCP THIS MORNING TO RULE OUT CYSTIC DUCT OBSTRUCTION. WE WILL ALSO ADMINISTER 2 UNITS OF PRBC. OTHERWISE, WE PLAN TO FOLLOW UP WITH AM LABS AND CONTINUE TO MONITOR. TIME SPENT ON CLINICAL ASSESSMENT, REVIEWING LABS AND IMAGING, DECISION MAKING, AND DOCUMENTATION GREATER THAN 45 MINUTES. - Past Medical Family Social History Past Med/Fam/Surg Hx: No changes since H&P Allergies: Allergies No Known Drug Allergies Allergy (Unverified 12/28/20 19:08) - Review of Systems ROS: No change since H&P - Vital Signs and I&O's Vital Signs: Temperature 97.4 F Pulse Rate [Left Brachial] 90 Pulse Rate 71 Respiratory Rate 18 Blood Pressure [Left Arm] 86/51 Blood Pressure 160/89 O2 Sat by Pulse Oximetry 100 Intake and Output: Intake & Output 12/29/20 12/30/20 12/31/20 01/01/21 11:59 11:59 11:59 11:59 Intake Total 662 / 662 5155 / 5155 2445 / 2445 3880 / 3880 Output Total 400 / 400 1200 / 1200 220 / 220 1950 / 1949 Balance 262 / 262 3955 / 3955 2225 / 2225 193 / 193 - Physical Exam Oriented: Normal, Time, Person, Place Eyes: Normal Ear: Normal Nose: Normal Throat: Normal Respiratory: Diminished Cardiovascular: Normal : Normal Auscultation: Bowel Sounds: Normal Palpation: Normal Tenderness: Diffuse, Mild Skin: Normal Musculoskeletal: Instability Psychiatric: Normal Mood Description: Calm Affect: Normal Speech Pattern: Clear - Laboratory and Diagnostics Result Diagrams: 01/01/21 04:23 01/01/21 04:23 Labs: Laboratory WBC 5.1 X10^3/uL (3.6-10.0) 01/01/21 04:23 RBC 2.65 X10^6/uL (4.7-6.0) L 01/01/21 04:23 Hgb 7.8 g/dL (13.5-18.0) L 01/01/21 04:23 Hct 23.9 % (42.0-54.0) L 01/01/21 04:23 MCV 90.3 fL (80.0-100.0) 01/01/21 04:23 MCH 29.5 pg (27.0-34.0) 01/01/21 04:23 MCHC 32.6 g/dL (33.0-35.0) L 01/01/21 04:23 RDW 22.1 % (11.6-16.5) H 01/01/21 04:23 Plt Count 200 X10^3/uL (150.0-450.0) 01/01/21 04:23 Plt Count Comment Adequate (ADEQUATE) 01/01/21 04:23 MPV 8.9 fL (7.4-11.0) 01/01/21 04:23 Neut % (Auto) 64.4 % (42.0-75.0) 01/01/21 04:23 Lymph % (Auto) 19.4 % (21.0-51.0) L 01/01/21 04:23 [place] % (Auto) 9.3 % (0.0-13.0) 01/01/21 04:23 Eos % (Auto) 4.1 % (0.9-2.9) H 01/01/21 04:23 Baso % (Auto) 2.8 % (0.2-1.0) H 01/01/21 04:23 Neut # (Auto) 3.3 x10^3/uL (2.2-4.8) 01/01/21 04:23 Lymph # (Auto) 1.0 X10^3/uL (1.3-2.9) L 01/01/21 04:23 [place] # (Auto) 0.5 x10^3/uL (0.3-0.8) 01/01/21 04:23 Eos # (Auto) 0.2 x10^3/uL (0.0-0.2) 01/01/21 04:23 Baso # (Auto) 0.1 X10^3/uL (0.0-0.1) 01/01/21 04:23 Absolute Nucleated RBC 0.1 /100WBC 01/01/21 04:23 Plt Morphology Comment Normal (NORMAL) 01/01/21 04:23 RBC Morphology Abnormal (NORMAL) 01/01/21 04:23 Hypochromasia Slight A 01/01/21 04:23 Anisocytosis 2+ A 01/01/21 04:23 ESR 91 MM/HOUR (0-15) H 12/29/20 05:10 Sample Site Rrad 12/28/20 17:50 ABG pH 7.350 (7.35-7.45) 12/28/20 17:50 ABG pCO2 26.0 mmHg (35.0-45.0) L 12/28/20 17:50 ABG pO2 116.0 mmHg (80.0-100.0) H 12/28/20 17:50 ABG HCO3 14.4 mmol/L (22-26) L* 12/28/20 17:50 ABG O2 Saturation 98.0 % (90-100) 12/28/20 17:50 ABG Base Excess -9.6 mmol/L (-2.0-2.0) L 12/28/20 17:50 Yusef Test Pos 12/28/20 17:50 A-a Gradient 1.0 mmHg 12/28/20 17:50 FiO2 21.0 12/28/20 17:50 Blood Gas Comments Pt olga well elj cdn 12/28/20 17:50 Sodium 142 mmol/L (136-145) 01/01/21 04:23 Corrected Sodium TNP 01/01/21 04:23 Potassium 3.8 mmol/L (3.5-5.1) 01/01/21 04:23 Chloride 112 mmol/L (98-107) H 01/01/21 04:23 Carbon Dioxide 17.3 mmol/L (21-32) L 01/01/21 04:23 BUN 14 mg/dL (7-18) 01/01/21 04:23 Creatinine 1.06 mg/dL (0.70-1.30) 01/01/21 04:23 Est GFR (MDRD) Af Amer > 60 (>60) 01/01/21 04:23 Est GFR (MDRD) Non-Af > 60 (>60) 01/01/21 04:23 Glucose 83 mg/dL (65-99) 01/01/21 04:23 POC Glucose (mg/dL) 202 mg/dL (65-99) H 12/31/20 16:31 Lactic Acid 0.5 mmol/L (0.4-2.0) 12/28/20 17:04 Calcium 8.3 mg/dL (8.5-10.1) L 01/01/21 04:23 Corrected Calcium 9.8 mg/dL (8.5-10.1) 01/01/21 04:23 Magnesium 1.5 mg/dL (1.7-2.9) L 01/01/21 04:23 Iron 16 ug/dL (50-175) L 12/29/20 05:10 Transferrin 231 mg/dL (202-364) 12/29/20 05:10 Ferritin 83 ng/mL (26-388) 12/29/20 05:10 Total Bilirubin 0.30 mg/dL (0.2-1.0) 01/01/21 04:23 GGT 764 U/L (7-51) H 12/29/20 05:10 AST 42 Units/L (15-37) H 01/01/21 04:23 ALT 13 Units/L (12-78) 01/01/21 04:23 Alkaline Phosphatase 371 Units/L (46-116) H 01/01/21 04:23 Ammonia 45 umol/L (11-32) H 01/01/21 08:57 Creatine Kinase 228 Units/L (39-308) 12/28/20 17:04 C-Reactive Protein 18.60 mg/L (0-3.0) H 01/01/21 04:23 Total Protein 6.0 g/dL (6.4-8.2) L 01/01/21 04:23 Albumin 2.1 g/dL (3.4-5.0) L 01/01/21 04:23 Globulin 3.9 g/dL (2.5-4.5) 01/01/21 04:23 Albumin/Globulin Ratio 0.5 Ratio (1.1-2.1) L 01/01/21 04:23 Carcinoembryonic Ag 3.3 ng/mL (0.0-3.0) H 12/29/20 05:10 Vitamin B12 1818 pg/mL (193-986) H 12/29/20 05:10 Folate 5.1 ng/mL (>8.6) L 12/29/20 05:10 Specimen Type Clean catch urine 12/28/20 19:03 Urine Color Yellow (YELLOW) 12/28/20 19:03 Urine Appearance Clear (CLEAR) 12/28/20 19:03 Urine pH 5.0 (5.0 - 8.0) 12/28/20 19:03 Ur Specific [place] 1.015 (1.000-1.030) 12/28/20 19:03 Urine Protein 1+ (NEGATIVE) 12/28/20 19:03 Urine Glucose (UA) Negative (NEGATIVE) 12/28/20 19:03 Urine Ketones 1+ (NEGATIVE) 12/28/20 19:03 Urine Occult Blood 2+ (NEGATIVE) 12/28/20 19:03 Urine Nitrite Negative (NEGATIVE) 12/28/20 19:03 Urine Bilirubin 1+ (NEGATIVE) 12/28/20 19:03 Urine Urobilinogen 1+ (NORMAL) 12/28/20 19:03 Ur Leukocyte Esterase Negative (NEGATIVE) 12/28/20 19:03 Urine RBC 3-5 /HPF (0-3) A 12/28/20 19:03 Urine WBC 0-2 /HPF (0-5) 12/28/20 19:03 Ur Squamous Epith Cells Few /HPF (NEGATIVE) 12/28/20 19:03 Urine Bacteria 1+ /HPF (NEGATIVE) 12/28/20 19:03 Hyaline Casts Few /LPF (NEGATIVE) 12/28/20 19:03 Ur Culture Indicated? No/not indicated 12/28/20 19:03 SARS CoV-2 RNA Rapid GISSELLE Negative (NEGATIVE) 12/28/20 19:14 Tissue Pathology To follow 12/30/20 10:34 - Plan (1) Gastric wall thickening Status: Acute Plan: NORMAL SALINE AT 125 ML/HR, ZOSYN 3.375G IV BID, MAGNESIUM PER PROTOCOL, DEMEROL 25MG IV Q6H PRN, PEPCID 20MG IV BID, PROTONIX 40MG IV BID, GI COCKTAIL PRN, ZOFRAN 4MG IV Q8H PRN, AND TRAMADOL 50MG PO QID PRN. HIDA IN AM (2) Pancolitis Status: Acute (3) Metabolic acidosis Status: Acute (4) Acute dehydration Status: Acute (5) Anemia Status: Acute Qualifiers: Anemia type: unspecified type Qualified Code(s): D64.9 - Anemia, unspecified Plan: TRANSFUSE 2 UNIT PRBC (6) CRF (chronic renal failure) Status: Acute Qualifiers: Chronic kidney disease stage: stage 5 Qualified Code(s): N18.5 - Chronic kidney disease, stage 5
--- NOTE | 2021-01-01 14:25 | MRI ---
MRCPClinical indication: RULE OUT CYSTIC DUCT OBSTRUCTIONProcedure: Multiplanar multi sequence MRI of the abdomen were obtained without the administration of intravenous contrast according to standard MRCP protocol.Comparisons:Abdomen pelvis CT December 28, 2020Findings:No significant iron or fat deposition in the liver or spleen. Small volume ascites particular in the right abdomen and perihepatic region.Liver and spleen are normal in size and morphology. No definite focal lesions. Gallbladder is not dilated however there is gallbladder wall thickening. No filling defects within the common bile duct. No ductal dilatation Pancreas demonstrates normal T1 signal. Adrenal glands are grossly normal Kidneys demonstrate normal cortical medullary differentiation. No hydronephrosis. No suspicious lymph nodes.Impression:1. Gallbladder wall thickening without visible gallstones. No gallbladder dilatation. Again, if acute cholecystitis is clinically suspected or cannot be differentiated on clinical examination, HIDA scan would be recommended.2. Amount of fluid within the abdomen and perihepatic region has increased significantly when compared to prior. Correlate clinically.MRCP is a focused examination designed specifically to evaluate the bile ducts. Ability to evaluate other organs and detection of parenchymal lesions and masses is limited.Electronically signed by: KAYLA FERREIRA (January 01, 2021 14:23:05)
--- NOTE | 2021-01-01 21:15 | NOTE.SOAP ---
Soap Note Note for Day of Date of Exam: 01/01/21 Subjective Data Subjective Data: Patient doing well. Hgb is 7.8 and to receive 2 more units of blood. Taking clear liquids. I called [facility] [place] about then pathology of the stomach biopsies and they told me it just need ed confirmation but they never called me back. Objective Data Temperature: 97.2 F Pulse Rate: 77 Respiratory Rate: 18 Blood Pressure: 166/86 O2 Sat by Pulse Oximetry: 100 Objective Data: Abdomen soft and benign Assessment Assessment: 2 units PRBCs today . Should have final pathology tomorrow so we can make final plan Plan Plan: as above
[2021-01-01] MEDS ORDERED: NS 250 ML IV 250 ML IV ONE (21:23)
[2021-01-02] MEDS ORDERED: NS 250 ML IV 250 ML IV ONE (02:48)
[2021-01-02] MEDS: NS 1000 ML 1,000 ML IV SCH ×2 (04:10→09:35)
[2021-01-02] MEDS: DEMEROL INJ IVP PRN ×2 (05:14→11:30)
[2021-01-02 07:01] LABS: BASOPHILS # (AUTO) 0.1 X10^3/uL (0.0-0.1); EOSINOPHILS # (AUTO) 0.2 x10^3/uL (0.0-0.2); EOSINOPHILS % (AUTO) 3.9 % (0.9-2.9); HEMATOCRIT 32.4 % (42.0-54.0); HEMOGLOBIN 10.6 g/dL (13.5-18.0); LYMPHOCYTES # (AUTO) 0.8 X10^3/uL (1.3-2.9); LYMPHOCYTES % (AUTO) 14.5 % (21.0-51.0); MEAN CORPUSCULAR HEMOGLOBIN 28.5 pg (27.0-34.0); MEAN CORPUSCULAR HGB CONC 32.6 g/dL (33.0-35.0); MEAN CORPUSCULAR VOLUME 87.3 fL (80.0-100.0); MEAN PLATELET VOLUME 8.6 fL (7.4-11.0); MONOCYTES # (AUTO) 0.6 x10^3/uL (0.3-0.8); MONOCYTES % (AUTO) 10.5 % (0.0-13.0); NEUTROPHILS % (AUTO) 70.1 % (42.0-75.0); PLATELET COUNT 189 X10^3/uL (150.0-450.0); RED BLOOD COUNT 3.71 X10^6/uL (4.7-6.0); RED CELL DISTRIBUTION WIDTH 21.4 % (11.6-16.5); WHITE BLOOD COUNT 5.8 X10^3/uL (3.6-10.0)
[2021-01-02 07:09] LABS: ALANINE AMINOTRANSFERASE 15 Units/L (12-78); ALBUMIN 2.4 g/dL (3.4-5.0); ALKALINE PHOSPHATASE 386 Units/L (46-116); ASPARTATE AMINO TRANSFERASE 45 Units/L (15-37); BLOOD UREA NITROGEN 10 mg/dL (7-18); CALCIUM 8.5 mg/dL (8.5-10.1); CARBON DIOXIDE 20.1 mmol/L (21-32); CHLORIDE 107 mmol/L (98-107); COR CA(FOR HYPOALB) 9.8 mg/dL (8.5-10.1); CREATININE 1.03 mg/dL (0.70-1.30); MAGNESIUM 1.4 mg/dL (1.7-2.9); SODIUM 138 mmol/L (136-145); TOTAL PROTEIN 6.5 g/dL (6.4-8.2); eGFR NON BLACK RACES > 60 (>60)
[2021-01-02 07:19] LABS: AMMONIA 40 umol/L (11-32)
[2021-01-02 07:30] LABS: PLATELET MORPHOLOGY COMMENT NORMAL (NORMAL)
[2021-01-02 07:31] LABS: ANISOCYTOSIS 1+
[2021-01-02] MEDS: PROTONIX INJ 40 MG VIAL IVP SCH (09:14)
[2021-01-02] MEDS: ZOSYN VIAL 3.375 GRAMS 3.375 G in NS 100 ML IV + SPIKE MINIBAG* 100 ML IV SCH (09:15)
[2021-01-02] MEDS: PEPCID 20 MG IV PREMIX* 20 MG/50 ML BAG IV SCH (09:15)
[2021-01-02 12:45] VITALS: BP 173/99
== END 2021-01-02 12:15 | disposition home health service (06) | DRG 386 ==
LOC: ER 16:03 → MED/SURG 19:44 → ICU 19:48 → MED/SURG 12-31 14:14
PROVIDERS: ADMIT Internal Medicine; ATTEND Internal Medicine

== ENCOUNTER 2021-02-23 19:56 | Observation (INO) ==
[2021-02-23] MEDS ORDERED: PROTONIX INJ 40 MG VIAL IVP ONE (20:43)
[2021-02-23] MEDS ORDERED: NS 1000 ML 1,000 ML IV ONE (20:43)
[2021-02-23] MEDS ORDERED: MORPHINE SULFATE INJ 2 MG INJ IVP ONE (21:06)
[2021-02-23] MEDS ORDERED: ZOFRAN INJ 4 MG VIAL IVP ONE (21:06)
--- NOTE | 2021-02-23 21:12 | DR.ABDMALE ---
HPI Time seen Time Seen by Provider: 02/23/21 20:43 PCP Primary Care Physician: JU TAVERAS Complaint Chief Complaint:: PT IN ED VIA WHEELCHAIR WITH C/O ABD PAIN WITH PASSING BLOOD IN STOOL TODAY. COVID-19 Coronavirus risk:travel/contact w/high risk person: No Has patient experienced Coronavirus symptoms: No Reviewed Nurses Notes Review: Yes Mode of arrival Mode of Arrival: Wheelchair Timing Onset of Chief Complaint: 02/23/21 Duration How lon Duration: Days Location Location: Diffuse Severity Severity: Moderate Quality Quality: Aching and Cramping Associated signs and symptoms Associated Signs and Symptoms: Melena PMH PMH Past Medical History: Yes Past Medical History: Anemia, Coronary Artery Disease, Hypertension and PUD Past Surgical History: Yes Surgical History: Angioplasty/Stents Family History History of Family Medical Conditions: Yes Family Medical History: Diabetes Mellitus Social History Does patient currently use any type of tobacco product: Yes Have you used tobacco products in the last 12 months: Yes Type of Tobacco Use: Cigarettes Does any household member use tobacco: No Alcohol Use: Occasionally Do you use any recreational Drugs:: No Lives With: Friend Lives Where: Home Travel Risk Coronavirus risk:travel/contact w/high risk person: No Has patient experienced Coronavirus symptoms: No Infectious screening In the last 2 months have you had wt loss of >10#?: NO Have you had fever, night sweats or hemotysis?: No Have you traveled outside the country in the last 6 months?: No Isolation: Standard ROS Review of Systems Constitutional: No Symptoms Reported Eyes: No Symptoms Reported ENTM: No Symptoms Reported Respiratoy: No Symptoms Reported Cardiovascular: No Symptoms Reported Gastrointestinal/Abdominal: See HPI and Abdominal Pain Genitourinary: No Symptoms Reported Neurological: No Symptoms Reported Musculoskeletal: No Symptoms Reported Integumentary: No Symptoms Reported Hematologic/Lymphatic: No Symptoms Reported Endocrine: No Symptoms Reported Psychiatric: No Symptoms Reported All Other Systems: Reviewed and Negative PE Vital Signs Vital Signs: Temp Pulse Resp BP BP Pulse Ox 02/23/21 22:30 97 H 106/61 100 02/23/21 22:15 87 100 02/23/21 22:07 84 96 02/23/21 22:00 85 20 95/62 100 02/23/21 21:45 95 H 107/59 100 02/23/21 21:39 18 02/23/21 19:57 96.9 F L 107 H 22 113/63 100 01/02/21 12:00 173/99 12/28/20 20:15 86/51 General Limitations: No Limitations General Appearance: Alert and In No Apparent Distress Head Head Exam: Normal Inspection Eyes Eye exam: Normal Appearance ENT ENT Exam: Normal Exam Neck Neck Exam: Normal Inspection Chest Chest Inspection: Normal Inspection Respiratory Respiratory Exam: Normal Lung Sounds Bilat Cardiovascular Cardiovascular Exam: Regular Rate and Normal Rhythm Abdominal Exam Abdominal Exam: Normal Inspection, Soft and Tenderness (mild diffuse) Rectal Rectal Exam: Normal Inspection, Normal Rectal Tone and Black Stool Back Back Exam: Normal Inspection Extremeties Extremities Exam: Normal Inspection Exam: Male: Deferred Neurologic Neurological Exam: Alert and Oriented X3 Psychiatric Psychiatric Exam: Normal Affect and Normal Mood Skin Skin Exam: Warm, Dry, Intact and Normal Color MDM Additional Information Obtained From Additional information provided by: Old Records and Family Differential Diagnosis Differential Diagnosis: AAA, Angina/NH, Aortic dissection, Appendicitis, Bowel Obstruction, Cholangitis, Cholcystitis, Cholelethiasis, Constipation, Diverticular disease, Dysmenorrhea, Ectopic , Esophageal rupture, Esophagitis, Gastritus/PUD, Gastroenteritis, Hernia, Hepatitis, Inflammatory BD, Ischemic Bowel, Ovarian cyst/torsion, Pancreatitis, PID, Porphyria, Trauma, intra-abdominal, Urinary obstruction, Urinary tract infection, Urolithiasis, Testicular torsion and Other (comments) COURSE Treatment Treatment: ? GI bleed, h/o of gastric ulcers, dark stools, vitals OK Reevaluation 1st: Unchanged (hgb 6.6 spoke with Sera, will transfuse and admit, ) 2nd: Unchanged (will be admitted, transfuse on floor, bridging orders written, pt accepted, labs unremarkable except for indications or alcohol abuse and GI bleeding, no reported hematemsis ) Critical Care Notes Total Time (mins): 35 Critical Diagnosis: GI bleed, acute blood loss anemia Critical Interventions: treatment , admission, transfusion ROR Labs Reviewed Laboratory Results Reviewed?: Yes Result Diagrams: 02/23/21 21:18 02/23/21 21:18 Laboratory: WBC 10.3 X10^3/uL (3.6-10.0) H 02/23/21 21:18 RBC 2.05 X10^6/uL (4.7-6.0) L 02/23/21 21:18 Hgb 6.6 g/dL (13.5-18.0) L* 02/23/21 21:18 Hct 18.9 % (42.0-54.0) L* 02/23/21 21:18 MCV 92.3 fL (80.0-100.0) 02/23/21 21:18 MCH 32.1 pg (27.0-34.0) 02/23/21 21:18 MCHC 34.8 g/dL (33.0-35.0) 02/23/21 21:18 RDW 19.0 % (11.6-16.5) H 02/23/21 21:18 Plt Count 277 X10^3/uL (150.0-450.0) 02/23/21 21:18 Plt Count Comment Adequate (ADEQUATE) 02/23/21 21:18 MPV 8.2 fL (7.4-11.0) 02/23/21 21:18 Neut % (Auto) 78.5 % (42.0-75.0) H 02/23/21 21:18 Lymph % (Auto) 12.2 % (21.0-51.0) L 02/23/21 21:18 [place] % (Auto) 7.3 % (0.0-13.0) 02/23/21 21:18 Eos % (Auto) 1.1 % (0.9-2.9) 02/23/21 21:18 Baso % (Auto) 0.9 % (0.2-1.0) 02/23/21 21:18 Neut # (Auto) 8.1 x10^3/uL (2.2-4.8) H 02/23/21 21:18 Lymph # (Auto) 1.3 X10^3/uL (1.3-2.9) 02/23/21 21:18 [place] # (Auto) 0.7 x10^3/uL (0.3-0.8) 02/23/21 21:18 Eos # (Auto) 0.1 x10^3/uL (0.0-0.2) 02/23/21 21:18 Baso # (Auto) 0.1 X10^3/uL (0.0-0.1) 02/23/21 21:18 Absolute Nucleated RBC 0.0 /100WBC 02/23/21 21:18 Total Counted 100 02/23/21 21:18 Neutrophils % (Manual) 77 % (39-76) H 02/23/21 21:18 Band Neutrophils % 2 % (0-10) 02/23/21 21:18 Lymphocytes % (Manual) 13 % (13-43) 02/23/21 21:18 Monocytes % (Manual) 7 % (4-9) 02/23/21 21:18 Eosinophils % (Manual) 1 % (0-6) 02/23/21 21:18 Plt Morphology Comment Normal (NORMAL) 02/23/21 21:18 RBC Morphology Abnormal (NORMAL) 02/23/21 21:18 Anisocytosis Slight A 02/23/21 21:18 Target Cells Present 02/23/21 21:18 PT 15.1 SECONDS (11.8-14.3) 02/23/21 21:18 INR Target Range - 02/23/21 21:18 INR 1.25 (0.8-1.3) 02/23/21 21:18 Sodium 139 mmol/L (136-145) 02/23/21 21:18 Corrected Sodium TNP 02/23/21 21:18 Potassium 5.2 mmol/L (3.5-5.1) H 02/23/21 21:18 Chloride 107 mmol/L (98-107) 02/23/21 21:18 Carbon Dioxide 19.3 mmol/L (21-32) L 02/23/21 21:18 BUN 40 mg/dL (7-18) H 02/23/21 21:18 Creatinine 0.97 mg/dL (0.70-1.30) 02/23/21 21:18 Est GFR (MDRD) Af Amer > 60 (>60) 02/23/21 21:18 Est GFR (MDRD) Non-Af > 60 (>60) 02/23/21 21:18 Glucose 93 mg/dL (65-99) 02/23/21 21:18 Calcium 7.0 mg/dL (8.5-10.1) L 02/23/21 21:18 Corrected Calcium 8.2 mg/dL (8.5-10.1) L 02/23/21 21:18 Total Bilirubin 0.60 mg/dL (0.2-1.0) 02/23/21 21:18 AST 115 Units/L (15-37) H 02/23/21 21:18 ALT 44 Units/L (12-78) 02/23/21 21:18 Alkaline Phosphatase 394 Units/L (46-116) H 02/23/21 21:18 Creatine Kinase 70 Units/L (39-308) 02/23/21 21:18 CK-MB (CK-2) 4.0 ng/mL (0-4.0) 02/23/21 21:18 CK/CKMB % Calc 5.7 % (<4) 02/23/21 21:18 Troponin I 0.14 ng/mL (0-1.5) 02/23/21 21:18 Total Protein 6.3 g/dL (6.4-8.2) L 02/23/21 21:18 Albumin 2.5 g/dL (3.4-5.0) L 02/23/21 21:18 Globulin 3.8 g/dL (2.5-4.5) 02/23/21 21:18 Albumin/Globulin Ratio 0.7 Ratio (1.1-2.1) L 02/23/21 21:18 Amylase 37 Units/L (25-115) 02/23/21 21:18 Lipase 76 Units/L (73-393) 02/23/21 21:18 SARS-CoV-2 (PCR) Negative (NEGATIVE) 02/23/21 21:41 Influenza Type A (PCR) Negative (NEGATIVE) 02/23/21 21:41 Influenza Type B (PCR) Negative (NEGATIVE) 02/23/21 21:41 RSV (PCR) Negative (NEGATIVE) 02/23/21 21:41 Blood Type O POSITIVE 02/23/21 21:18 Antibody Screen Negative 02/23/21 21:18 Crossmatch See Detail 02/23/21 21:18 anemia and GI bleed XRAY XRAY Interpreted by: Self X-ray Results: NAP EKG Rate: 97 [place]: LAD Rhythm: NSR Block: None Hypertrophy: None ST: Nonsp Opioid Opioid Risk Tool Age (Timo box if 16-45): No History of Preadolescent Sexual Abuse: No Total: 0 Total Score Risk Category: Low Risk Copyright: [place] predicting aberrant behaviors Diagnosis Discharge Problem: Acute GI bleeding Anemia Qualifiers: Anemia type: iron deficiency 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
[2021-02-23] MEDS ORDERED: MORPHINE SULFATE INJ 2 MG INJ ONE (21:20)
[2021-02-23] MEDS ORDERED: PROTONIX INJ 40 MG VIAL ONE (21:20)
[2021-02-23] MEDS ORDERED: NS 1000 ML 1,000 ML ONE (21:20)
[2021-02-23] MEDS ORDERED: ZOFRAN INJ 4 MG VIAL ONE (21:20)
[2021-02-23] MEDS ORDERED: NS 50 ML IV 50 ML IV ONE (21:21)
[2021-02-23 21:30] LABS: BASOPHILS # (AUTO) 0.1 X10^3/uL (0.0-0.1); EOSINOPHILS # (AUTO) 0.1 x10^3/uL (0.0-0.2); MONOCYTES # (AUTO) 0.7 x10^3/uL (0.3-0.8)
[2021-02-23 21:32] LABS: BASOPHILS % (AUTO) 0.9 % (0.2-1.0); EOSINOPHILS % (AUTO) 1.1 % (0.9-2.9); LYMPHOCYTES # (AUTO) 1.3 X10^3/uL (1.3-2.9); LYMPHOCYTES % (AUTO) 12.2 % (21.0-51.0); MEAN CORPUSCULAR HEMOGLOBIN 32.1 pg (27.0-34.0); MEAN CORPUSCULAR HGB CONC 34.8 g/dL (33.0-35.0); MEAN CORPUSCULAR VOLUME 92.3 fL (80.0-100.0); MEAN PLATELET VOLUME 8.2 fL (7.4-11.0); MONOCYTES % (AUTO) 7.3 % (0.0-13.0); NEUTROPHILS # (AUTO) 8.1 x10^3/uL (2.2-4.8); NEUTROPHILS % (AUTO) 78.5 % (42.0-75.0); PLATELET COUNT 277 X10^3/uL (150.0-450.0); RED BLOOD COUNT 2.05 X10^6/uL (4.7-6.0); WHITE BLOOD COUNT 10.3 X10^3/uL (3.6-10.0)
[2021-02-23 21:55] LABS: HEMATOCRIT 18.9 % (42.0-54.0); HEMOGLOBIN 6.6 g/dL (13.5-18.0)
[2021-02-23 21:57] LABS: ANISOCYTOSIS SLIGHT; PLATELET MORPHOLOGY COMMENT NORMAL (NORMAL); TARGET CELLS PRESENT
[2021-02-23 22:01] LABS: BAND NEUTROPHILS % 2 % (0-10)
[2021-02-23 22:19] LABS: ALANINE AMINOTRANSFERASE 44 Units/L (12-78); ALBUMIN 2.5 g/dL (3.4-5.0); ALKALINE PHOSPHATASE 394 Units/L (46-116); AMYLASE 37 Units/L (25-115); ASPARTATE AMINO TRANSFERASE 115 Units/L (15-37); BLOOD UREA NITROGEN 40 mg/dL (7-18); CARBON DIOXIDE 19.3 mmol/L (21-32); CHLORIDE 107 mmol/L (98-107); COR CA(FOR HYPOALB) 8.2 mg/dL (8.5-10.1); CREATINE KINASE 70 Units/L (39-308); CREATININE 0.97 mg/dL (0.70-1.30); LIPASE 76 Units/L (73-393); SODIUM 139 mmol/L (136-145); TOTAL PROTEIN 6.3 g/dL (6.4-8.2); TROPONIN I 0.14 ng/mL (0-1.5); eGFR NON BLACK RACES > 60 (>60)
[2021-02-23 22:20] LABS: CKMB % 5.7 % (<4)
[2021-02-23] MEDS ORDERED: LIBRIUM PO PRN (22:49)
[2021-02-23] MEDS ORDERED: ZOFRAN INJ 4 MG VIAL IVP PRN (22:49)
[2021-02-23] MEDS ORDERED: PHENOBARBITAL SODIUM INJ 65 MG VIAL IM PRN (22:49)
[2021-02-23] MEDS: NS 1000 ML 1,000 ML IV SCH (23:15)
[2021-02-23 23:27] LABS: BILIRUBIN,URINE NEGATIVE (NEGATIVE); BLOOD/HEMOGLOBIN,URINE NEGATIVE (NEGATIVE); GLUCOSE, URINE NEGATIVE (NEGATIVE); KETONES,URINE NEGATIVE (NEGATIVE); LEUKOCYTE ESTERASE ,URINE NEGATIVE (NEGATIVE); NITRITES,URINE NEGATIVE (NEGATIVE); PROTEIN,URINE 1+ (NEGATIVE); UROBILINOGEN,URINE NORMAL (NORMAL)
[2021-02-23 23:29] LABS: APPEARANCE,URINE CLEAR (CLEAR); BACTERIA,URINE NEGATIVE /HPF (NEGATIVE); COLOR,URINE PALE YELLOW (YELLOW); RBC,URINE NONE SEEN /HPF (0-3); SQUAMOUS EPITHELIAL CELL,UR RARE /HPF (NEGATIVE)
[2021-02-24] MEDS: PROTONIX INJ 40 MG VIAL 80 MG in NS 100 ML IV 80 ML IV SCH ×4 (00:10→21:28)
[2021-02-24] MEDS: THIAMINE HCL INJ IM SCH ×2 (00:11→22:31)
[2021-02-24] MEDS ORDERED: NS 250 ML IV 250 ML IV ONE ×2 (01:00→09:34)
--- NOTE | 2021-02-24 01:20 | RAD ---
PROCEDURE: Acute Abdomen Series .HISTORY: ABDOMINAL PAINS, BLOODY STOOL .TECHNIQUE: AP supine and upright abdomen with AP chest x-ray views .COMPARISON: 05/11/2019 chest x-ray.TECHNICAL QUALITY: Satisfactory .FINDINGS:Chest x-ray shows clear lungs and normal size heart.No pneumoperitoneum.Scattered gas in large and small bowel without distention. No obstruction or ileus.No organomegaly.No abnormal calcifications.No bony abnormality.IMPRESSION:1. Nonspecific bowel gas pattern.2. No active cardiopulmonary disease.Electronically signed by: Jon Qiu (Feb 24, 2021 01:19:01)
[2021-02-24 08:31] LABS: BASOPHILS # (AUTO) 0.1 X10^3/uL (0.0-0.1); BASOPHILS % (AUTO) 1.5 % (0.2-1.0); EOSINOPHILS # (AUTO) 0.2 x10^3/uL (0.0-0.2); EOSINOPHILS % (AUTO) 3.4 % (0.9-2.9); HEMATOCRIT 25.3 % (42.0-54.0); LYMPHOCYTES # (AUTO) 1.2 X10^3/uL (1.3-2.9); LYMPHOCYTES % (AUTO) 16.9 % (21.0-51.0); MEAN CORPUSCULAR HEMOGLOBIN 30.8 pg (27.0-34.0); MEAN CORPUSCULAR HGB CONC 33.9 g/dL (33.0-35.0); MEAN PLATELET VOLUME 7.8 fL (7.4-11.0); MONOCYTES # (AUTO) 0.7 x10^3/uL (0.3-0.8); MONOCYTES % (AUTO) 10.2 % (0.0-13.0); NEUTROPHILS # (AUTO) 4.8 x10^3/uL (2.2-4.8); PLATELET COUNT 174 X10^3/uL (150.0-450.0); RED BLOOD COUNT 2.78 X10^6/uL (4.7-6.0); RED CELL DISTRIBUTION WIDTH 17.5 % (11.6-16.5); WHITE BLOOD COUNT 7.1 X10^3/uL (3.6-10.0)
[2021-02-24 08:34] LABS: HEMOGLOBIN 8.6 g/dL (13.5-18.0)
[2021-02-24 08:46] LABS: BLOOD UREA NITROGEN 38 mg/dL (7-18); CALCIUM 7.3 mg/dL (8.5-10.1); CARBON DIOXIDE 19.9 mmol/L (21-32); CHLORIDE 113 mmol/L (98-107); CREATININE 1.01 mg/dL (0.70-1.30); SODIUM 143 mmol/L (136-145); eGFR NON BLACK RACES > 60 (>60)
[2021-02-24] MEDS ORDERED: LIBRIUM PO PRN (09:00)
[2021-02-24] MEDS: ZESTRIL TAB 40 MG PO SCH ×2 (09:26→09:31)
[2021-02-24] MEDS: PEPCID TAB 40 MG PO SCH ×2 (09:27→21:27)
--- NOTE | 2021-02-24 10:12 | DR.H&P ---
H&P History & Physical for Day of: H&P Date: 02/24/21 Chief Complaint Chief Complaint: Melena Symptomatic anemia Allergies Allergies Allergy/AdvReac Type Severity Reaction Status Date / Time No Known Drug Allergies Allergy Unverified 12/28/20 19:08 History of Present Illness History of Present Illness: Pt is a 60 year old male past medical history of hypertension, alcohol use disorder, presenting with dark tarry stools, dizziness, and abdominal pain for the past week. He reports drinking 7 beers a day. He has had GI bleeding in the past and states he has had EGD and colonoscopy in the past at various hospitals, the last time was in [place]. He is not on any anticoagulants or blood thinners. Labs/imaging: Wbc 10.3, Hgb 6.6, Plt 277, Na 139, K 5.2, Creatinine 0.97, Glucose 93, AST 115, ALT 44, ALKP 394, Amylase 37, Lipase 76, UA negative, EtOH <3, Hemeoccult pending, CXR: No acute cardiopulmonary process. Abdominal XR: 1. Nonspecific bowel gas pattern. 2. No active cardiopulmonary disease. Will make patient NPO, IV protonix, serial H/H, 2 units of packed red blood cells ordered and transfused, awaiting morning labs that are pending. Consult surgery-Dr Charles for further evaluation. Pt has been started on medications in anticipation of symptoms of alcohol withdrawal. Continue to monitor and follow up labs/imaging. Past Medical History Past Medical History: Anemia, Coronary Artery Disease, Hypertension and PUD Past Surgical History Surgical History: Angioplasty/Stents Additional Surgical History: Back surgery Family History Family Medical History: Diabetes Mellitus Social History Does patient currently use any type of tobacco product: Yes Have you used tobacco products in the last 12 months: Yes Type of Tobacco Use: Cigarettes How many years tobacco product used: 25 Does any household member use tobacco: No Alcohol Use: DAILY Drug Use: None Medications Home Medications: No Known Drug Allergies Allergy (Unverified 12/28/20 19:08) CONTINUE taking the following medications carisoprodol 350 mg PO QHS 02/23/21 [History] cyproheptadine 4 mg PO TID 02/23/21 [History] donepezil 5 mg PO DAILY 02/23/21 [History] omeprazole 40 mg PO DAILY 02/23/21 [History] sucralfate 1 g PO QID 02/23/21 [History] tamsulosin 0.4 mg PO DAILY 02/23/21 [History] Labs Result Diagrams: 02/24/21 08:17 02/24/21 08:17 Labs: Laboratory WBC 7.1 X10^3/uL (3.6-10.0) 02/24/21 08:17 RBC 2.78 X10^6/uL (4.7-6.0) L 02/24/21 08:17 Hgb 8.6 g/dL (13.5-18.0) L D 02/24/21 08:17 Hct 25.3 % (42.0-54.0) L 02/24/21 08:17 MCV 91.0 fL (80.0-100.0) 02/24/21 08:17 MCH 30.8 pg (27.0-34.0) 02/24/21 08:17 MCHC 33.9 g/dL (33.0-35.0) 02/24/21 08:17 RDW 17.5 % (11.6-16.5) H 02/24/21 08:17 Plt Count 174 X10^3/uL (150.0-450.0) 02/24/21 08:17 Plt Count Comment Adequate (ADEQUATE) 02/23/21 21:18 MPV 7.8 fL (7.4-11.0) 02/24/21 08:17 Neut % (Auto) 68.0 % (42.0-75.0) 02/24/21 08:17 Lymph % (Auto) 16.9 % (21.0-51.0) L 02/24/21 08:17 [place] % (Auto) 10.2 % (0.0-13.0) 02/24/21 08:17 Eos % (Auto) 3.4 % (0.9-2.9) H 02/24/21 08:17 Baso % (Auto) 1.5 % (0.2-1.0) H 02/24/21 08:17 Neut # (Auto) 4.8 x10^3/uL (2.2-4.8) 02/24/21 08:17 Lymph # (Auto) 1.2 X10^3/uL (1.3-2.9) L 02/24/21 08:17 [place] # (Auto) 0.7 x10^3/uL (0.3-0.8) 02/24/21 08:17 Eos # (Auto) 0.2 x10^3/uL (0.0-0.2) 02/24/21 08:17 Baso # (Auto) 0.1 X10^3/uL (0.0-0.1) 02/24/21 08:17 Absolute Nucleated RBC 0.1 /100WBC 02/24/21 08:17 Total Counted 100 02/23/21 21:18 Neutrophils % (Manual) 77 % (39-76) H 02/23/21 21:18 Band Neutrophils % 2 % (0-10) 02/23/21 21:18 Lymphocytes % (Manual) 13 % (13-43) 02/23/21 21:18 Monocytes % (Manual) 7 % (4-9) 02/23/21 21:18 Eosinophils % (Manual) 1 % (0-6) 02/23/21 21:18 Plt Morphology Comment Normal (NORMAL) 02/23/21 21:18 RBC Morphology Abnormal (NORMAL) 02/23/21 21:18 Anisocytosis Slight A 02/23/21 21:18 Target Cells Present 02/23/21 21:18 PT 15.1 SECONDS (11.8-14.3) 02/23/21 21:18 INR Target Range - 02/23/21 21:18 INR 1.25 (0.8-1.3) 02/23/21 21:18 Sodium 143 mmol/L (136-145) 02/24/21 08:17 Corrected Sodium TNP 02/24/21 08:17 Potassium 4.6 mmol/L (3.5-5.1) 02/24/21 08:17 Chloride 113 mmol/L (98-107) H 02/24/21 08:17 Carbon Dioxide 19.9 mmol/L (21-32) L 02/24/21 08:17 BUN 38 mg/dL (7-18) H 02/24/21 08:17 Creatinine 1.01 mg/dL (0.70-1.30) 02/24/21 08:17 Est GFR (MDRD) Af Amer > 60 (>60) 02/24/21 08:17 Est GFR (MDRD) Non-Af > 60 (>60) 02/24/21 08:17 Glucose 99 mg/dL (65-99) 02/24/21 08:17 Calcium 7.3 mg/dL (8.5-10.1) L 02/24/21 08:17 Corrected Calcium 8.2 mg/dL (8.5-10.1) L 02/23/21 21:18 Total Bilirubin 0.60 mg/dL (0.2-1.0) 02/23/21 21:18 AST 115 Units/L (15-37) H 02/23/21 21:18 ALT 44 Units/L (12-78) 02/23/21 21:18 Alkaline Phosphatase 394 Units/L (46-116) H 02/23/21 21:18 Creatine Kinase 70 Units/L (39-308) 02/23/21 21:18 CK-MB (CK-2) 4.0 ng/mL (0-4.0) 02/23/21 21:18 CK/CKMB % Calc 5.7 % (<4) 02/23/21 21:18 Troponin I 0.14 ng/mL (0-1.5) 02/23/21 21:18 Total Protein 6.3 g/dL (6.4-8.2) L 02/23/21 21:18 Albumin 2.5 g/dL (3.4-5.0) L 02/23/21 21:18 Globulin 3.8 g/dL (2.5-4.5) 02/23/21 21:18 Albumin/Globulin Ratio 0.7 Ratio (1.1-2.1) L 02/23/21 21:18 Amylase 37 Units/L (25-115) 02/23/21 21:18 Lipase 76 Units/L (73-393) 02/23/21 21:18 Specimen Type Clean catch urine 02/23/21 23:12 Urine Color Pale yellow (YELLOW) 02/23/21 23:12 Urine Appearance Clear (CLEAR) 02/23/21 23:12 Urine pH 6.0 (5.0 - 8.0) 02/23/21 23:12 Ur Specific [place] 1.010 (1.000-1.030) 02/23/21 23:12 Urine Protein 1+ (NEGATIVE) 02/23/21 23:12 Urine Glucose (UA) Negative (NEGATIVE) 02/23/21 23:12 Urine Ketones Negative (NEGATIVE) 02/23/21 23:12 Urine Occult Blood Negative (NEGATIVE) 02/23/21 23:12 Urine Nitrite Negative (NEGATIVE) 02/23/21 23:12 Urine Bilirubin Negative (NEGATIVE) 02/23/21 23:12 Urine Urobilinogen Normal (NORMAL) 02/23/21 23:12 Ur Leukocyte Esterase Negative (NEGATIVE) 02/23/21 23:12 Urine RBC None seen /HPF (0-3) 02/23/21 23:12 Urine WBC None seen /HPF (0-5) 02/23/21 23:12 Ur Squamous Epith Cells Rare /HPF (NEGATIVE) 02/23/21 23:12 Urine Bacteria Negative /HPF (NEGATIVE) 02/23/21 23:12 Ur Culture Indicated? No/not indicated 02/23/21 23:12 Stool Description 100g,black,semisolid 02/24/21 09:08 Stl Occult Blood (IFOB) Positive (NEGATIVE) A 02/24/21 09:08 Ethyl Alcohol mg/dL < 3 mg/dL (0-19.9) 02/23/21 21:18 SARS-CoV-2 (PCR) Negative (NEGATIVE) 02/23/21 21:41 Influenza Type A (PCR) Negative (NEGATIVE) 02/23/21 21:41 Influenza Type B (PCR) Negative (NEGATIVE) 02/23/21 21:41 RSV (PCR) Negative (NEGATIVE) 02/23/21 21:41 Blood Type O POSITIVE 02/23/21 21:18 Antibody Screen Negative 02/23/21 21:18 Crossmatch See Detail 02/23/21 21:18 Review of Systems Constitutional: Weakness; denies Fever and Chills Eyes: No Symptoms Reported ENT: No Symptoms Reported Respiratory: No Symptoms Reported Cardiovascular: No Symptoms Reported Gastrointestinal: Abdominal Pain and Melena; denies Nausea and Constipation Genitourinary: No Symptoms Reported Musculoskeletal: No Symptoms Reported Skin: No Symptoms Reported Neurological: No Symptoms Reported Physical Exam Vital Signs: Temperature 97.4 F Pulse Rate [Brachial] 86 Pulse Rate 97 Respiratory Rate 18 Blood Pressure [Left Arm] 126/64 Blood Pressure 106/61 O2 Sat by Pulse Oximetry 100 Oriented: Normal Eyes: Normal Ear: Normal Nose: Normal Throat: Normal Respiratory: Clear Throughout Cardiovascular: Normal : Normal Auscultation: Bowel Sounds: Normal Palpation: Normal Tenderness: Epigastric Skin: Normal Musculoskeletal: Normal Psychiatric: Normal Mood Description: Calm and Appropriate Affect: Normal Speech Pattern: Clear and Appropriate Assessment/Plan (1) Acute GI bleeding: Status: Acute (2) Alcohol abuse: Status: Acute (3) Symptomatic anemia: Status: Acute Review H&P Reviewed: Yes Patient was examined?: Yes
[2021-02-24] MEDS ORDERED: DIPRIVAN VIAL 0 ML ONE (10:31)
--- NOTE | 2021-02-24 11:00 | RAD ---
HISTORYPRE OP CHESTSTUDYCHEST, 1 VIEWCOMPARISONPA and lateral chest May 11, 2019.FINDINGSThe trachea is midline. The cardiac silhouette is unremarkable . The lungs are clear without focal infiltrate or effusion. The bony thorax is unremarkable.IMPRESSIONNo acute cardiopulmonary disease and no change from prior chest film May 11, 2019..Electronically signed by: HALEIGH ARMENTA (Feb 24, 2021 10:58:04)
[2021-02-24] MEDS ORDERED: DIPRIVAN VIAL 20 ML ONE (11:13)
[2021-02-24] MEDS: NS 1000 ML 1,000 ML IV SCH ×3 (14:05→22:31)
[2021-02-24] MEDS: CARAFATE PO SCH ×2 (17:08→21:27)
[2021-02-24] MEDS: MORPHINE SULFATE INJ 2 MG INJ IVP PRN (19:21)
[2021-02-25] MEDS: NS 1000 ML 1,000 ML IV SCH (00:06)
[2021-02-25] MEDS: MORPHINE SULFATE INJ 2 MG INJ IVP PRN (01:14)
[2021-02-25 04:00] VITALS: BP 138/84
[2021-02-25] MEDS: CARAFATE PO SCH (05:22)
[2021-02-25] MEDS: PROTONIX INJ 40 MG VIAL 80 MG in NS 100 ML IV 80 ML IV SCH (05:22)
[2021-02-25 08:46] LABS: BASOPHILS # (AUTO) 0.1 X10^3/uL (0.0-0.1); EOSINOPHILS # (AUTO) 0.3 x10^3/uL (0.0-0.2); EOSINOPHILS % (AUTO) 4.9 % (0.9-2.9); HEMATOCRIT 24.8 % (42.0-54.0); HEMOGLOBIN 8.3 g/dL (13.5-18.0); LYMPHOCYTES % (AUTO) 15.8 % (21.0-51.0); MEAN CORPUSCULAR HEMOGLOBIN 30.9 pg (27.0-34.0); MEAN CORPUSCULAR HGB CONC 33.6 g/dL (33.0-35.0); MEAN PLATELET VOLUME 7.6 fL (7.4-11.0); MONOCYTES # (AUTO) 0.4 x10^3/uL (0.3-0.8); MONOCYTES % (AUTO) 6.4 % (0.0-13.0); NEUTROPHILS # (AUTO) 4.6 x10^3/uL (2.2-4.8); NEUTROPHILS % (AUTO) 71.9 % (42.0-75.0); PLATELET COUNT 178 X10^3/uL (150.0-450.0); WHITE BLOOD COUNT 6.4 X10^3/uL (3.6-10.0)
[2021-02-25 09:00] LABS: ALANINE AMINOTRANSFERASE 37 Units/L (12-78); ALBUMIN 2.2 g/dL (3.4-5.0); ALKALINE PHOSPHATASE 358 Units/L (46-116); ASPARTATE AMINO TRANSFERASE 76 Units/L (15-37); BLOOD UREA NITROGEN 20 mg/dL (7-18); CALCIUM 7.3 mg/dL (8.5-10.1); CARBON DIOXIDE 16.7 mmol/L (21-32); COR CA(FOR HYPOALB) 8.7 mg/dL (8.5-10.1); COR NA(FOR HYPERGLY) 147 mmol/L (136-145); CREATININE 0.97 mg/dL (0.70-1.30); SODIUM 146 mmol/L (136-145); TOTAL PROTEIN 5.7 g/dL (6.4-8.2); eGFR NON BLACK RACES > 60 (>60)
[2021-02-25 09:04] LABS: CHLORIDE 116 mmol/L (98-107)
--- NOTE | 2021-02-25 09:29 | W.DIS.FURT ---
Summary of Discharge Discharge Summary of Date Date of Exam: 02/25/21 Admission Date Date of Admission: 02/23/21 Admission Diagnosis Patient Problems (Updated 02/24/21 @ 12:56 by Thomas Fitzpatrick) Anemia (Acute) D64.9 Acute GI bleeding (Acute) K92.2 Hospital Course: Pt is a 60 year old male past medical history of hypertension, alcohol use disorder, admitted for GI bleed and symptomatic anemia after having dark tarry stools. Pt's hospital/treatment course included: NPO, IV protonix, serial H/H, 2 units of packed red blood cells ordered and transfused. General surgery was consulted-Dr Charles and pt had EGD that showed Hypertrophic gastritis of the proximal stomach with thick gastric arvizu involved with numerous friable polyps. No active bleeding. The process involved most of the proximal stomach down to the antrum. The antrum itself was spared. No ulcers or active bleeding. No neoplasm or varices. The duodenum and duodenal bulb were otherwise normal. Labs/imaging: Wbc 6.4, Hgb 8.3, Plt 178, Na 146, K 3.9, Creatinine 0.97, Glucose 125. Pt hemoglobin stabilized and no further episodes of black tarry stools. Pt discharged with carafate, pepcid, and prilosec. Pt instructed to follow up with pcp in 3-5 days. Vital Signs: Vital Signs (72 hours) 02/23/21 19:57 02/23/21 21:39 02/23/21 21:45 Temperature 96.9 F L Pulse Rate 107 H 95 H Pulse Rate [Brachial] Respiratory Rate 22 18 Blood Pressure 113/63 107/59 Blood Pressure [Left Arm] O2 Sat by Pulse Oximetry 100 100 02/23/21 22:00 02/23/21 22:07 02/23/21 22:15 Temperature Pulse Rate 85 84 87 Pulse Rate [Brachial] Respiratory Rate 20 Blood Pressure 95/62 Blood Pressure [Left Arm] O2 Sat by Pulse Oximetry 100 96 100 02/23/21 22:30 02/23/21 22:48 02/24/21 00:00 Temperature 98.2 F Pulse Rate 97 H Pulse Rate [Brachial] 69 Respiratory Rate 20 18 Blood Pressure 106/61 Blood Pressure [Left Arm] 123/60 O2 Sat by Pulse Oximetry 100 100 02/24/21 04:00 02/24/21 08:00 02/24/21 11:13 Temperature 98.3 F 97.4 F L 97.4 F L Pulse Rate 97 H Pulse Rate [Brachial] 87 86 Respiratory Rate 18 18 18 Blood Pressure 106/61 Blood Pressure [Left Arm] 113/61 126/64 O2 Sat by Pulse Oximetry 100 100 100 02/24/21 11:35 02/24/21 11:50 02/24/21 12:05 Temperature 98.0 F 98.2 F 98.0 F Pulse Rate Pulse Rate [Brachial] 97 H 98 H 98 H Respiratory Rate 20 18 20 Blood Pressure Blood Pressure [Left Arm] 186/72 131/68 126/64 O2 Sat by Pulse Oximetry 100 99 96 02/24/21 12:20 02/24/21 12:35 02/24/21 16:00 Temperature 98.4 F 98.4 F 98.3 F Pulse Rate Pulse Rate [Brachial] 81 80 83 Respiratory Rate 18 18 20 Blood Pressure Blood Pressure [Left Arm] 149/78 148/76 133/72 O2 Sat by Pulse Oximetry 97 96 100 02/24/21 19:21 02/24/21 19:51 02/24/21 20:00 Temperature 97.8 F Pulse Rate Pulse Rate [Brachial] 88 Respiratory Rate 18 18 18 Blood Pressure Blood Pressure [Left Arm] 142/69 O2 Sat by Pulse Oximetry 99 02/25/21 00:00 02/25/21 01:14 02/25/21 01:44 Temperature 98.4 F Pulse Rate Pulse Rate [Brachial] 82 Respiratory Rate 18 18 18 Blood Pressure Blood Pressure [Left Arm] 154/75 O2 Sat by Pulse Oximetry 99 02/25/21 04:00 Temperature 97.7 F Pulse Rate Pulse Rate [Brachial] 79 Respiratory Rate 18 Blood Pressure Blood Pressure [Left Arm] 138/84 O2 Sat by Pulse Oximetry 100 Labs: Laboratory Last Values WBC 6.4 X10^3/uL (3.6-10.0) 02/25/21 08:20 RBC 2.70 X10^6/uL (4.7-6.0) L 02/25/21 08:20 Hgb 8.3 g/dL (13.5-18.0) L 02/25/21 08:20 Hct 24.8 % (42.0-54.0) L 02/25/21 08:20 MCV 92.0 fL (80.0-100.0) 02/25/21 08:20 MCH 30.9 pg (27.0-34.0) 02/25/21 08:20 MCHC 33.6 g/dL (33.0-35.0) 02/25/21 08:20 RDW 19.0 % (11.6-16.5) H 02/25/21 08:20 Plt Count 178 X10^3/uL (150.0-450.0) 02/25/21 08:20 Plt Count Comment Adequate (ADEQUATE) 02/23/21 21:18 MPV 7.6 fL (7.4-11.0) 02/25/21 08:20 Neut % (Auto) 71.9 % (42.0-75.0) 02/25/21 08:20 Lymph % (Auto) 15.8 % (21.0-51.0) L 02/25/21 08:20 [place] % (Auto) 6.4 % (0.0-13.0) 02/25/21 08:20 Eos % (Auto) 4.9 % (0.9-2.9) H 02/25/21 08:20 Baso % (Auto) 1.0 % (0.2-1.0) 02/25/21 08:20 Neut # (Auto) 4.6 x10^3/uL (2.2-4.8) 02/25/21 08:20 Lymph # (Auto) 1.0 X10^3/uL (1.3-2.9) L 02/25/21 08:20 [place] # (Auto) 0.4 x10^3/uL (0.3-0.8) 02/25/21 08:20 Eos # (Auto) 0.3 x10^3/uL (0.0-0.2) H 02/25/21 08:20 Baso # (Auto) 0.1 X10^3/uL (0.0-0.1) 02/25/21 08:20 Absolute Nucleated RBC 0.1 /100WBC 02/25/21 08:20 Total Counted 100 02/23/21 21:18 Neutrophils % (Manual) 77 % (39-76) H 02/23/21 21:18 Band Neutrophils % 2 % (0-10) 02/23/21 21:18 Lymphocytes % (Manual) 13 % (13-43) 02/23/21 21:18 Monocytes % (Manual) 7 % (4-9) 02/23/21 21:18 Eosinophils % (Manual) 1 % (0-6) 02/23/21 21:18 Plt Morphology Comment Normal (NORMAL) 02/23/21 21:18 RBC Morphology Abnormal (NORMAL) 02/23/21 21:18 Anisocytosis Slight A 02/23/21 21:18 Target Cells Present 02/23/21 21:18 PT 15.1 SECONDS (11.8-14.3) 02/23/21 21:18 INR Target Range - 02/23/21 21:18 INR 1.25 (0.8-1.3) 02/23/21 21:18 Sodium 146 mmol/L (136-145) H 02/25/21 08:20 Corrected Sodium 147 mmol/L (136-145) H 02/25/21 08:20 Potassium 3.9 mmol/L (3.5-5.1) 02/25/21 08:20 Chloride 116 mmol/L (98-107) H* 02/25/21 08:20 Carbon Dioxide 16.7 mmol/L (21-32) L 02/25/21 08:20 BUN 20 mg/dL (7-18) H 02/25/21 08:20 Creatinine 0.97 mg/dL (0.70-1.30) 02/25/21 08:20 Est GFR (MDRD) Af Amer > 60 (>60) 02/25/21 08:20 Est GFR (MDRD) Non-Af > 60 (>60) 02/25/21 08:20 Glucose 125 mg/dL (65-99) H 02/25/21 08:20 Calcium 7.3 mg/dL (8.5-10.1) L 02/25/21 08:20 Corrected Calcium 8.7 mg/dL (8.5-10.1) 02/25/21 08:20 Total Bilirubin 0.20 mg/dL (0.2-1.0) 02/25/21 08:20 AST 76 Units/L (15-37) H 02/25/21 08:20 ALT 37 Units/L (12-78) 02/25/21 08:20 Alkaline Phosphatase 358 Units/L (46-116) H 02/25/21 08:20 Creatine Kinase 70 Units/L (39-308) 02/23/21 21:18 CK-MB (CK-2) 4.0 ng/mL (0-4.0) 02/23/21 21:18 CK/CKMB % Calc 5.7 % (<4) 02/23/21 21:18 Troponin I 0.14 ng/mL (0-1.5) 02/23/21 21:18 Total Protein 5.7 g/dL (6.4-8.2) L 02/25/21 08:20 Albumin 2.2 g/dL (3.4-5.0) L 02/25/21 08:20 Globulin 3.5 g/dL (2.5-4.5) 02/25/21 08:20 Albumin/Globulin Ratio 0.6 Ratio (1.1-2.1) L 02/25/21 08:20 Amylase 37 Units/L (25-115) 02/23/21 21:18 Lipase 76 Units/L (73-393) 02/23/21 21:18 Specimen Type Clean catch urine 02/23/21 23:12 Urine Color Pale yellow (YELLOW) 02/23/21 23:12 Urine Appearance Clear (CLEAR) 02/23/21 23:12 Urine pH 6.0 (5.0 - 8.0) 02/23/21 23:12 Ur Specific [place] 1.010 (1.000-1.030) 02/23/21 23:12 Urine Protein 1+ (NEGATIVE) 02/23/21 23:12 Urine Glucose (UA) Negative (NEGATIVE) 02/23/21 23:12 Urine Ketones Negative (NEGATIVE) 02/23/21 23:12 Urine Occult Blood Negative (NEGATIVE) 02/23/21 23:12 Urine Nitrite Negative (NEGATIVE) 02/23/21 23:12 Urine Bilirubin Negative (NEGATIVE) 02/23/21 23:12 Urine Urobilinogen Normal (NORMAL) 02/23/21 23:12 Ur Leukocyte Esterase Negative (NEGATIVE) 02/23/21 23:12 Urine RBC None seen /HPF (0-3) 02/23/21 23:12 Urine WBC None seen /HPF (0-5) 02/23/21 23:12 Ur Squamous Epith Cells Rare /HPF (NEGATIVE) 02/23/21 23:12 Urine Bacteria Negative /HPF (NEGATIVE) 02/23/21 23:12 Ur Culture Indicated? No/not indicated 02/23/21 23:12 Stool Description 100g,black,semisolid 02/24/21 09:08 Stl Occult Blood (IFOB) Positive (NEGATIVE) A 02/24/21 09:08 Ethyl Alcohol mg/dL < 3 mg/dL (0-19.9) 02/23/21 21:18 SARS-CoV-2 (PCR) Negative (NEGATIVE) 02/23/21 21:41 Influenza Type A (PCR) Negative (NEGATIVE) 02/23/21 21:41 Influenza Type B (PCR) Negative (NEGATIVE) 02/23/21 21:41 RSV (PCR) Negative (NEGATIVE) 02/23/21 21:41 Tissue Pathology To follow 02/24/21 11:23 Blood Type O POSITIVE 02/23/21 21:18 Antibody Screen Negative 02/23/21 21:18 Crossmatch See Detail 02/23/21 21:18 Reason For Visit: GI BLEED, ANEMIA Discharge Date Discharge Date: 02/25/21 Discharge Diagnosis All Active Problems (Updated 02/24/21 @ 12:56 by Thomas Fitzpatrick) Symptomatic anemia (Acute) Gastric wall thickening (Acute) Pancolitis (Acute) Multilevel degenerative disc disease (Acute) Metabolic acidosis (Acute) CRF (chronic renal failure) (Acute) Anemia (Acute) Alcohol abuse (Acute) Acute dehydration (Acute) Acute GI bleeding (Acute) Plan of Treatment: Continue with present treatment and follow up plan. Pt is to keep follow up appointment as instructed and take medications as ordered. Discharge Medications Discharge Medications: No Known Drug Allergies Allergy (Unverified 12/28/20 19:08) CONTINUE taking the following medications carisoprodol 350 mg PO QHS 02/23/21 [History] cyproheptadine 4 mg PO TID 02/23/21 [History] donepezil 5 mg PO DAILY 02/23/21 [History] sucralfate 1 g PO QID 02/23/21 [History] tamsulosin 0.4 mg PO DAILY 02/23/21 [History] New Prescriptions famotidine 40 mg PO BID 30 Days #60 tab 02/25/21 [Rx] omeprazole 40 mg PO DAILY 30 Days #30 cap 02/25/21 [Rx] sucralfate 1 g PO TID 10 Days #30 tab 02/25/21 [Rx] Follow up and Referral Follow Up: 1 Week Discharge Disposition Discharge Disposition: Home Discharge Condition: Stable Discharge Plan Discharge Plan Hospital Course: Pt is a 60 year old male past medical history of hypertension, alcohol use disorder, admitted for GI bleed and symptomatic anemia after having dark tarry stools. Pt's hospital/treatment course included: NPO, IV protonix, serial H/H, 2 units of packed red blood cells ordered and transfused. General surgery was consulted-Dr Charles and pt had EGD that showed Hypertrophic gastritis of the proximal stomach with thick gastric arvizu involved with numerous friable polyps. No active bleeding. The process involved most of the proximal stomach down to the antrum. The antrum itself was spared. No ulcers or active bleeding. No neoplasm or varices. The duodenum and duodenal bulb were otherwise normal. Labs/imaging: Wbc 6.4, Hgb 8.3, Plt 178, Na 146, K 3.9, Creatinine 0.97, Glucose 125. Pt hemoglobin stabilized and no further episodes of black tarry stools. Pt discharged with carafate, pepcid, and prilosec. Pt instructed to follow up with pcp in 3-5 days. Patient Disposition: 01 HOME, SELF-CARE Condition: Stable Health Concerns: Post Hospitalization: new medications and changes needed to prevent readmission or further decline. Pt educated and given instructions on all concerns. Care Plan Goals: Problem: Fluid Volume Deficit Goal: Maintain/Improved Adequate hydration. Instructions: Follow provided instructions. Follow up with primary physician as directed. Contact primary care physician or report to the closest Emergency Room if condition worsens. Plan of Treatment: Continue with present treatment and follow up plan. Pt is to keep follow up appointment as instructed and take medications as ordered. Prescriptions: New sucralfate 1 gram Tablet 1 g PO TID 10 Days Qty: 30 RF: 0 famotidine 40 mg Tablet 40 mg PO BID 30 Days Qty: 60 RF: 0 lisinopril 40 mg Tablet 40 mg PO DAILY 30 Days Qty: 30 RF: 0 Continued carisoprodol 350 mg tablet 350 mg PO QHS RF: 0 donepezil 5 mg tablet 5 mg PO DAILY RF: 0 sucralfate 1 gram tablet 1 g PO QID RF: 0 cyproheptadine 4 mg tablet 4 mg PO TID RF: 0 tamsulosin 0.4 mg capsule 0.4 mg PO DAILY RF: 0 omeprazole 40 mg capsule,delayed release(DR/EC) 40 mg PO DAILY 30 Days Qty: 30 RF: 0 tramadol 50 mg tablet 100 mg PO QID RF: 0 Orders to Discharge Patient Discharge Orders: Discharge (Routine); Ordered 02/25/21 Ordered By: Thomas Fitzpatrick Follow ups/Referrals Follow ups/Referrals: Christiano Ace DO [Other] - 1 WEEK CARLOS CHARLES [STAFF PHYSICIAN] - 03/11/21 10:00 am (Please arrive early to fill out new patient packet.) Instructions Instructions: Alcohol Use Disorder, Anemia, Alcohol Abuse and Nutrition, Steps to Quit Smoking, [id number], Gastritis, Adult, [id number], Gastric Polyps, Hypertension, [id number], Gastrointestinal Bleeding, [id number], Esophagogas troduodenoscopy, Care After Stand Alone Forms: Precautions for COVID19, Patient Portal, Social Distancing
[2021-02-25] MEDS: ZESTRIL TAB 40 MG PO SCH (10:13)
[2021-02-25] MEDS: PEPCID TAB 40 MG PO SCH (10:13)
== END 2021-02-25 12:35 | disposition home or self-care (01) ==
LOC: MED/SURG 19:56 → ER 19:56 → MED/SURG 22:50
PROVIDERS: ADMIT Internal Medicine; ATTEND Family Medicine
DX: I10 Essential (primary) hypertension; K92.2 Gastrointestinal hemorrhage, unspecified; R10.84 Generalized abdominal pain; K29.60 Other gastritis without bleeding; F10.10 Alcohol abuse, uncomplicated; Z20.822 Contact with and (suspected) exposure to COVID-19; R94.31 Abnormal electrocardiogram [ECG] [EKG]; D50.0 Iron deficiency anemia secondary to blood loss (chronic)